=== PATIENT | female | born 1985 | race Caucasian/White ===

== ENCOUNTER 2016-10-27 16:40 | Emergency (ER) | payer OTHER ==
[2016-10-27 16:49] VITALS: BP 147/74; PULSE 74; TEMP 97.8; BMI 19.3
[2016-10-27] MEDS ORDERED: ONDANSETRON 4 MG/2 ML VIAL ONE (17:13)
--- NOTE | 2016-10-27 17:28 | PDOC ---
History of Present Illness - General History Source: Patient Exam Limitations: No Limitations - History of Present Illness Initial Comments: 10/27/16 17:52 31 yr female with nvd and abd pain started at 3am. Pt states her daughter had stomach virus yesterday. pt denies fever or chills c/o pain to her stomach, no urinary or bowel dysfunction no vaginal discharge or abnormal bleeding. LMP 10/10/16 Timing/Duration: reports: constant Abdominal Pain Onset Location: reports: generalized abdomen Pain Radiation: reports: no radiation Activities at Onset: denies: none <Christine Roberto - Last Filed: 10/27/16 19:03> <Megan Gatica - Last Filed: 10/27/16 20:00> - General Chief Complaint: Nausea/Vomiting Stated Complaint: NAUSEA/VOMITING Time Seen by Provider: 10/27/16 17:27 Past History - Past Medical History Anemia: No Asthma: Yes Cancer: No Cardiac Disorders: No CVA: No COPD: No CHF: No Dementia: No Diabetes: No GI Disorders: No Disorders: No HTN: No Hypercholesterolemia: No Kidney Stones: Yes Liver Disease: No Psychiatric Problems: Yes (ANXIETY) Suicide Attempt (Hx): No Seizures: No Thyroid Disease: No - Surgical History Abdominal Surgery: Yes (EXP LAP) Appendectomy: No Cardiac Surgery: No Cholecystectomy: No Lung Surgery: No Neurologic Surgery: No Orthopedic Surgery: No - Family Disease History Comment:: 10/27/16 17:54 none relevant - Reproductive History (#): 9 Para: 2 Cervical CA: No Dysfunctional Uterine Bleeding: No Ectopic : No Endometrial CA: No Endometriosis: Yes Therapeutic (s) & number: No Tubal Ligation: No Spontaneous : 7 - Immunization History Immunization Up to Date: Yes - Psycho/Social/Smoking Cessation Hx Anxiety: No Suicidal Ideation: No Smoking Status: Yes Smoking History: Current every day smoker Have you smoked in the past 12 months: Yes Number of Cigarettes Smoked Daily: 10 Information on smoking cessation initiated: No 'Breaking Loose' booklet given: 06/21/16 Hx Alcohol Use: Yes (SOCIAL) Drug/Substance Use Hx: No Substance Use Type: None Hx Substance Use Treatment: No <Christine Roberto - Last Filed: 10/27/16 19:03> <Megan Gatica - Last Filed: 10/27/16 20:00> - Past Medical History Allergies/Adverse Reactions: Allergies Allergy/AdvReac Type Severity Reaction Status Date / Time ketorolac tromethamine Allergy Intermediate Itching Verified 10/27/16 16:49 [From Toradol] Home Medications: Ambulatory Orders Diphenhydramine HCl [Benadryl -] 25 mg PO Q8H PRN #21 capsule 09/07/16 Abd/GI Specific PMHX - Complaint Specific PMHX Colitis: No Diverticulitis: No Gall Bladder Disease: No GERD: No Hepatitis: No Irritable Bowel Synd (IBS): No Pancreatitis: No GI Ulcer Disease: No <Christine Roberto - Last Filed: 10/27/16 19:03> Review of Systems - Review of Systems Able to Perform ROS?: Yes Comments:: 10/27/16 17:55 Is the patient limited Luxembourgish proficient: No Constitutional: No: Symptoms Reported HEENTM: No: Symptoms Reported Respiratory: No: Symptoms reported Cardiac (ROS): No: Symptoms Reported ABD/GI: Yes: See HPI <Christine Roberto - Last Filed: 10/27/16 19:03> *Physical Exam - Vital Signs Last Vital Signs Temp Pulse Resp BP Pulse Ox 97.8 F 74 20 147/74 97 10/27/16 16:42 10/27/16 16:42 10/27/16 16:42 10/27/16 16:42 10/27/16 16:42 - Physical Exam Comments: 10/27/16 17:55 General Appearance: Yes: Nourished, Appropriately Dressed HEENT: positive: EOMI, DAT, Pharyngeal Erythema, Nasal Congestion. negative: Sinus Tenderness Neck: positive: Supple. negative: Tender Respiratory/Chest: positive: Lungs Clear, Normal Breath Sounds. negative: Chest Tender Cardiovascular: positive: Regular Rhythm, Regular Rate Gastrointestinal/Abdominal: positive: Normal Bowel Sounds, Soft. negative: Tender Musculoskeletal: positive: Normal Inspection Extremity: positive: Normal Capillary Refill, Normal Inspection, Normal Range of Motion Integumentary: positive: Normal Color, Dry, Warm Neurologic: positive: Fully Oriented, Alert, Normal Mood/Affect, Normal Response , Motor Strength 5/5 <Christine Roberto - Last Filed: 10/27/16 19:03> - Vital Signs Last Vital Signs Temp Pulse Resp BP Pulse Ox 97.8 F 74 20 147/74 97 10/27/16 16:42 10/27/16 16:42 10/27/16 16:42 10/27/16 16:42 10/27/16 16:42 <Megan Gatica - Last Filed: 10/27/16 20:00> ED Treatment Course - LABORATORY CBC & Chemistry Diagram: 10/27/16 18:21 10/27/16 18:21 <Christine Roberto - Last Filed: 10/27/16 19:03> - LABORATORY CBC & Chemistry Diagram: 10/27/16 18:21 10/27/16 18:21 - ADDITIONAL ORDERS Additional order review: Laboratory Results 10/27/16 10/27/16 18:30 18:21 Sodium 140 Potassium 4.1 Chloride 109 H Carbon Dioxide 25 Anion Gap 6 L BUN 12 D Creatinine 0.6 Creat Clearance w eGFR > 60 Random Glucose 145 H D Calcium 8.3 L Total Bilirubin 0.8 AST 13 L D ALT 17 Alkaline Phosphatase 49 Total Protein 6.8 Albumin 3.9 Total Amylase 20 L Lipase 49 L Urine Color Lt. yellow Urine Appearance Clear Urine pH 5.5 D Ur Specific [place] 1.025 Urine Protein Negative Urine Glucose (UA) Negative Urine Ketones 1+ H Urine Blood Trace-inta Urine Nitrite Negative Urine Bilirubin Negative Urine Urobilinogen 0.2 e.u/dl Ur Leukocyte Esterase Negative Urine HCG, Qual Negative 10/27/16 18:21 RBC 4.75 MCV 99.6 H MCHC 32.8 RDW 14.1 MPV 9.2 Neutrophils % 93.9 H Lymphocytes % 3.0 L D Monocytes % 2.7 L Eosinophils % 0.1 Basophils % 0.3 - Medications Given in the ED: ED Medications Discontinued Medications Generic Name Dose Route Start Last Admin Trade Name Freq PRN Reason Stop Dose Admin Diphenhydramine HCl 12.5 mg 10/27/16 18:08 10/27/16 18:41 Benadryl Injection - IVPUSH 10/27/16 18:09 12.5 mg ONCE ONE Administration Famotidine/Sodium Chloride 50 mls @ 100 mls/hr 10/27/16 17:36 10/27/16 18:10 Pepcid 20 Mg Premixed Ivpb - IVPB 10/27/16 18:05 100 mls/hr ONCE ONE Administration Sodium Chloride 1,000 mls @ 1,000 mls/hr 10/27/16 18:28 10/27/16 18:41 Normal Saline - IV 10/27/16 19:27 1,000 mls/hr ASDIR STA Administration Metoclopramide HCl 10 mg 10/27/16 18:09 10/27/16 18:41 Reglan Injection - IVPB 10/27/16 18:10 10 mg ONCE ONE Administration Ondansetron HCl 4 mg 10/27/16 18:27 10/27/16 19:14 Zofran Odt - SL 10/27/16 18:28 Not Given ONCE ONE Ondansetron HCl 4 mg 10/27/16 19:15 10/27/16 17:15 Zofran Injection IVPB 10/27/16 19:16 4 mg NOW ONE Administration <Megan Gatica - Last Filed: 10/27/16 20:00> Progress Note - Progress Note Progress Note: Patient left before being d/c'd. Reviewed labs, awaiting urine results. Patient most likely has viral syndrome. Nurse Carina spoke with patient, removed IV and was to discharge patient, but patient left before I could discuss results with her. <Megan Gatica - Last Filed: 10/27/16 20:00> Medical Decision Making - Medical Decision Making 10/27/16 17:56 cc: nvd abd pain started at 3am daughter with stomach flu same symptoms pt denies fever or chills, no back pain , no urinary complaints. will give zofran, IVF pepcid 10/27/16 18:24 labs, urine pending will give benadryl and reglan for vomiting and re-assess 10/27/16 18:39 10/27/16 19:03 singed out to [facility] awaiting disposition <Christine Roberto - Last Filed: 10/27/16 19:03> *DC/Admit/Observation/Transfer <Christine Roberto - Last Filed: 10/27/16 19:03> - Discharge Dispostion Admit: No <Megan Gatica - Last Filed: 10/27/16 20:00> Diagnosis at time of Disposition: Viral infection - Discharge Dispostion Disposition: HOME Condition at time of disposition: Stable - Referrals Referrals: Michelle Cooper [Primary Care Provider] - - Patient Instructions Printed Discharge Instructions: DI for Vomiting -- Adult Additional Instructions: FOLLOW UP WITH YOUR PRIMARY CARE PROVIDER THIS WEEK. CALL TO SCHEDULE APPOINTMENT. RETURN IF SYMPTOMS WORSEN OR ANY CONCERNS FOR FURTHER EVALUATION. Print Language: GREEK
[2016-10-27] MEDS ORDERED: FAMOTIDINE 20 MG/50 ML IVPB 50 ML IVPB ONE ×2 (17:36→18:08)
[2016-10-27] MEDS ORDERED: METOCLOPRAMIDE HCL INJECTION 10 MG/2 ML VIAL IVPB ONE (18:09)
[2016-10-27] MEDS ORDERED: METOCLOPRAMIDE HCL INJECTION 10 MG/2 ML VIAL ONE (18:27)
[2016-10-27] MEDS ORDERED: ONDANSETRON *ODT* 4 MG TABLET SL ONE (18:27)
[2016-10-27] MEDS ORDERED: SODIUM CHLORIDE 1,000 ML IV STA (18:28)
[2016-10-27 18:38] LABS: BASOPHIL 0.3 % (0-2.0); EOSINOPHIL 0.1 % (0-4.5); MCH 32.7 pg (25.7-33.7); MCHC 32.8 g/dl (32.0-36.0); MEAN CELL VOLUME 99.6 fl (80-96); MEAN PLT VOLUME 9.2 fl (7.5-11.1); NEUTROPHILS 93.9 % (42.8-82.8); PLATELET COUNT 174 K/MM3 (134-434); RDW 14.1 % (11.6-15.6)
[2016-10-27 19:12] LABS: ALBUMIN 3.9 g/dl (3.4-5.0); AMYLASE 20 U/L (25-115); ANION GAP 6 (8-16); CALCIUM 8.3 mg/dL (8.5-10.1); CO2 25 mmol/L (21-32); GLUCOSE,RANDOM 145 mg/dL (74-106)
[2016-10-27 19:15] LABS: ALK PHOS 49 U/L (45-117); BILIRUBIN,TOTAL 0.8 mg/dL (0.2-1.0); CREATININE 0.6 mg/dL (0.55-1.02); SGOT/AST 13 U/L (15-37); SGPT/ALT 17 U/L (12-78); TOT PROT 6.8 g/dl (6.4-8.2)
[2016-10-27] MEDS ORDERED: ONDANSETRON 4 MG/2 ML VIAL IVPB ONE (19:15)
[2016-10-27 19:44] LABS: PH,URINE 5.5 (5.0-8.0); URINE APPEARANCE CLEAR; URINE BILIRUBIN NEGATIVE (NEGATIVE); URINE BLOOD TRACE-INTA (NEGATIVE); URINE COLOR LT. YELLOW; URINE GLUCOSE (UA) NEGATIVE (NEGATIVE); URINE KETONE 1+ (NEGATIVE); URINE LEUK ESTERASE NEGATIVE (NEGATIVE); URINE NITRITE NEGATIVE (NEGATIVE); URINE PROTEIN NEGATIVE (NEGATIVE); URINE UROBILINOGEN 0.2 E.U/dl E.U./dl (0.2-1.0)
== END 2016-10-27 19:55 | disposition home or self-care (01) ==
LOC: JER 16:40
PROC: 3E033GC Introduction of Other Therapeutic Substance into Peripheral Vein, Percutaneous Approach (ICD-10-PCS; principal; 2016-10-27)
PROC: 3E0337Z Introduction of Electrolytic and Water Balance Substance into Peripheral Vein, Percutaneous Approach (ICD-10-PCS; 2016-10-27)
DX: B34.9 Viral infection, unspecified (principal); F17.210 Nicotine dependence, cigarettes, uncomplicated; J45.909 Unspecified asthma, uncomplicated; F41.9 Anxiety disorder, unspecified; Z87.442 Personal history of urinary calculi
CPT/HCPCS: 36415; 80053; 81003; 82150; 83690; 84703; 85025; 96361; 96365; 96375; 99283-25

== ENCOUNTER 2016-12-31 15:04 | Emergency (ER) | payer OTHER ==
--- NOTE | 2016-12-31 15:16 | PDOC ---
Rapid Medical Evaluation Time Seen by Provider: 12/31/16 15:09 Medical Evaluation: Allergies Allergy/AdvReac Type Severity Reaction Status Date / Time ketorolac tromethamine Allergy Intermediate Itching Verified 10/27/16 16:49 [From Toradol] 12/31/16 15:09 I have performed a brief in-person evaluation of this patient. Ms. Patel is a 31 yo F with a history of endometriosis who presents to the ER with a complaint of nausea and vomiting. Pt states she is "here all the time", not sure why this repeatedly happens to her (suspects it is related to stress). "When I come here, they give me nausea medicine and send me home" Symptoms began at 3am Nausea and vomiting associated with abdominal pain which she currently rates Has not been seen by GI Pertinent physical exam findings: Afebrile Pt vomiting in garage in triage Difficult to examine: no abd distention, no obvious tenderness I have ordered the following: basic labs, , IVF The patient will proceed to the ED for further evaluation. 12/31/16 15:21
[2016-12-31 15:21] VITALS: BP 114/92; PULSE 74; TEMP 98.2; BMI 19.3
[2016-12-31] MEDS ORDERED: SODIUM CHLORIDE 1,000 ML IV STA ×2 (15:21→17:55)
[2016-12-31 15:38] LABS: BASOPHIL 0.3 % (0-2.0); MCH 33.3 pg (25.7-33.7); MCHC 34.1 g/dl (32.0-36.0); MEAN CELL VOLUME 97.7 fl (80-96); MEAN PLT VOLUME 9.1 fl (7.5-11.1); NEUTROPHILS 85.5 % (42.8-82.8); PLATELET COUNT 196 K/MM3 (134-434); RDW 13.5 % (11.6-15.6); WHITE BLOOD COUNT 12.2 K/mm3 (4.0-10.0)
[2016-12-31] MEDS ORDERED: ONDANSETRON *ODT* 4 MG TABLET SL ONE (15:52)
[2016-12-31 15:59] LABS: ALBUMIN 4.7 g/dl (3.4-5.0); ALK PHOS 54 U/L (45-117); AMYLASE 29 U/L (25-115); ANION GAP 9 (8-16); BILIRUBIN,TOTAL 0.7 mg/dL (0.2-1.0); CALCIUM 9.2 mg/dL (8.5-10.1); CO2 26 mmol/L (21-32); CREATININE 0.6 mg/dL (0.55-1.02); GLUCOSE,RANDOM 176 mg/dL (74-106); SGOT/AST 16 U/L (15-37); SGPT/ALT 21 U/L (12-78); TOT PROT 7.7 g/dl (6.4-8.2)
[2016-12-31] MEDS ORDERED: ONDANSETRON 4 MG/2 ML VIAL ONE ×2 (16:16→17:31)
[2016-12-31] MEDS ORDERED: LORazepam 1 MG TABLET PO ONE (16:30)
--- NOTE | 2016-12-31 16:31 | PDOC ---
History of Present Illness - General History Source: Patient Exam Limitations: No Limitations - History of Present Illness Initial Comments: 12/31/16 16:31 The patient is a 31-year-old female with a significant past medical history of endometriosis and anxiety, and presents to the emergency department with abdominal pain, nausea, and vomiting. She states the abdominal pain is located in the midgastric region and right lower quadrant. She reports this abdominal pain has been ongoing for many years. The patient reports that she has feels like her stomach contents are coming up but she is having difficulty getting relieved of it. Upon interview, she put her finger down her throat to aid in vomiting. She took ondansetron for the nausea with minimal relief. The patient denies chest pain, shortness of breath, headache and dizziness. The patient denies fever, chills, diarrhea and constipation. The patient denies dysuria, frequency, urgency and hematuria. LMP- ended yesterday Allergies: ketorolac tromethamine Social History: current everyday smoker PCP: Dr. Michelle Ellis <Keely Mosley - Last Filed: 12/31/16 16:31> <Yair Lilly - Last Filed: 12/31/16 18:01> - General Chief Complaint: Nausea/Vomiting Stated Complaint: VOMITING, NAUSEA Time Seen by Provider: 12/31/16 15:09 Past History <Keely Mosley - Last Filed: 12/31/16 16:31> - Past Medical History Anemia: No Asthma: Yes Cancer: No Cardiac Disorders: No CVA: No COPD: No CHF: No Dementia: No Diabetes: No GI Disorders: No Disorders: No HTN: No Hypercholesterolemia: No Kidney Stones: Yes Liver Disease: No Psychiatric Problems: Yes (ANXIETY) Suicide Attempt (Hx): No Seizures: No Thyroid Disease: No - Surgical History Abdominal Surgery: Yes (EXP LAP) Appendectomy: No Cardiac Surgery: No Cholecystectomy: No Lung Surgery: No Neurologic Surgery: No Orthopedic Surgery: No - Reproductive History (#): 9 Para: 2 Cervical CA: No Dysfunctional Uterine Bleeding: No Ectopic : No Endometrial CA: No Endometriosis: Yes Therapeutic (s) & number: No Tubal Ligation: No Spontaneous : 7 - Immunization History Immunization Up to Date: Yes - Psycho/Social/Smoking Cessation Hx Anxiety: Yes Suicidal Ideation: No Smoking Status: Yes Smoking History: Current every day smoker Have you smoked in the past 12 months: Yes Number of Cigarettes Smoked Daily: 10 Information on smoking cessation initiated: No 'Breaking Loose' booklet given: 06/21/16 Hx Alcohol Use: No Drug/Substance Use Hx: No Substance Use Type: None Hx Substance Use Treatment: No <Yair Lilly - Last Filed: 12/31/16 18:01> - Past Medical History Allergies/Adverse Reactions: Allergies Allergy/AdvReac Type Severity Reaction Status Date / Time ketorolac tromethamine Allergy Intermediate Itching Verified 12/31/16 15:21 [From Toradol] Home Medications: Ambulatory Orders Metoclopramide HCl [Reglan] 10 mg GT TID #30 tablet 12/31/16 Ondansetron [Ondansetron Odt] 8 mg PO TID #30 tab.rapdis 12/31/16 Promethazine HCl [Phenergan -] 25 mg PO TID #30 tablet 12/31/16 Review of Systems - Review of Systems Able to Perform ROS?: Yes Comments:: 12/31/16 16:31 GENERAL/CONSTITUTIONAL: No fever or chills. No weakness. HEAD, EYES, EARS, NOSE AND THROAT: No change in vision. No ear pain or discharge. No sore throat. CARDIOVASCULAR: No chest pain or shortness of breath. RESPIRATORY: No cough, wheezing, or hemoptysis. GASTROINTESTINAL: (+) Abdominal pain, (+) nausea, (+) vomiting. No diarrhea or constipation. GENITOURINARY: No dysuria, frequency, or change in urination. MUSCULOSKELETAL: No joint or muscle swelling or pain. No neck or back pain. SKIN: No rash NEUROLOGIC: No headache, vertigo, loss of consciousness, or change in strength/ sensation. ENDOCRINE: No increased thirst. No abnormal weight change. HEMATOLOGIC/LYMPHATIC: No anemia, easy bleeding, or history of blood clots. ALLERGIC/IMMUNOLOGIC: No hives or skin allergy. <Keely Mosley - Last Filed: 12/31/16 16:31> *Physical Exam - Vital Signs Last Vital Signs Temp Pulse Resp BP Pulse Ox 98.2 F 74 19 114/92 97 12/31/16 15:17 12/31/16 15:17 12/31/16 15:17 12/31/16 15:17 12/31/16 15:17 - Physical Exam Comments: 12/31/16 16:32 GENERAL: Awake, alert, and fully oriented, in no acute distress HEAD: No signs of trauma EYES: PERRLA, EOMI, sclera anicteric, conjunctiva clear ENT: Auricles normal inspection, hearing grossly normal, nares patent, oropharynx clear without exudates. Moist mucosa NECK: Normal ROM, supple, no lymphadenopathy, JVD, or masses LUNGS: Breath sounds equal, clear to auscultation bilaterally. No wheezes, and no crackles HEART: Regular rate and rhythm, normal S1 and S2, no murmurs, rubs or gallops ABDOMEN: Soft, nontender, normoactive bowel sounds. No guarding, no rebound. No masses EXTREMITIES: Normal range of motion, no edema. No clubbing or cyanosis. No cords, erythema, or tenderness NEUROLOGICAL: Cranial nerves II through XII grossly intact. Normal speech, normal gait SKIN: Warm, Dry, normal turgor, no rashes or lesions noted. <Keely Mosley - Last Filed: 12/31/16 16:31> - Vital Signs Last Vital Signs Temp Pulse Resp BP Pulse Ox 98.2 F 74 19 114/92 97 12/31/16 15:17 12/31/16 15:17 12/31/16 15:17 12/31/16 15:17 12/31/16 15:17 <Yair Lilly - Last Filed: 12/31/16 18:01> ED Treatment Course - LABORATORY CBC & Chemistry Diagram: 12/31/16 15:30 12/31/16 15:30 - ADDITIONAL ORDERS Additional order review: Laboratory Results 12/31/16 12/31/16 15:30 15:30 Sodium 139 Potassium 3.6 Chloride 104 Carbon Dioxide 26 Anion Gap 9 BUN 10 Creatinine 0.6 Creat Clearance w eGFR > 60 Random Glucose 176 H D Calcium 9.2 Total Bilirubin 0.7 AST 16 D ALT 21 D Alkaline Phosphatase 54 Total Protein 7.7 Albumin 4.7 D Total Amylase 29 D Lipase 62 L Serum , Qual Negative 12/31/16 15:30 RBC 4.85 MCV 97.7 H MCHC 34.1 RDW 13.5 MPV 9.1 Neutrophils % 85.5 H Lymphocytes % 11.5 D Monocytes % 2.7 L Eosinophils % 0.0 D Basophils % 0.3 <Keely Mosley - Last Filed: 12/31/16 16:31> - LABORATORY CBC & Chemistry Diagram: 12/31/16 15:30 12/31/16 15:30 - ADDITIONAL ORDERS Additional order review: Laboratory Results 12/31/16 12/31/16 15:30 15:30 Sodium 139 Potassium 3.6 Chloride 104 Carbon Dioxide 26 Anion Gap 9 BUN 10 Creatinine 0.6 Creat Clearance w eGFR > 60 Random Glucose 176 H D Calcium 9.2 Total Bilirubin 0.7 AST 16 D ALT 21 D Alkaline Phosphatase 54 Total Protein 7.7 Albumin 4.7 D Total Amylase 29 D Lipase 62 L Serum , Qual Negative 12/31/16 15:30 RBC 4.85 MCV 97.7 H MCHC 34.1 RDW 13.5 MPV 9.1 Neutrophils % 85.5 H Lymphocytes % 11.5 D Monocytes % 2.7 L Eosinophils % 0.0 D Basophils % 0.3 <Yair Lilly - Last Filed: 12/31/16 18:01> *DC/Admit/Observation/Transfer - Attestations Scribe Attestion: 12/31/16 16:32 Documentation prepared by Keely Mosley, acting as curator medical museum for Yair Lilly MD. <Keely Mosley - Last Filed: 12/31/16 16:31> - Discharge Dispostion Admit: No - Attestations Physician Attestion: 12/31/16 16:31 I, Dr. Yair Lilly, attest that this document has been prepared under my direction and personally reviewed by me in its entirety. I further attest, that it accurately reflects all work, treatment, procedures and medical decision -making performed by me. <Yair Lilly - Last Filed: 12/31/16 18:01> Diagnosis at time of Disposition: Gastroenteritis, Nausea Nausea & vomiting Qualifiers: Vomiting type: unspecified Vomiting Intractability: unspecified Qualified Code( s): R11.2 - Nausea with vomiting, unspecified - Discharge Dispostion Condition at time of disposition: Good - Prescriptions Prescriptions: Promethazine HCl [Phenergan -] 25 mg PO TID #30 tablet Metoclopramide HCl [Reglan] 10 mg GT TID #30 tablet Ondansetron [Ondansetron Odt] 8 mg PO TID #30 tab.rapdis - Referrals Referrals: Michelle Cooper [Primary Care Provider] - - Patient Instructions Additional Instructions: Follow up with your doctor next week. Return to us if worse or new symptoms occur. [place]- Dr. Yair Lilly
[2016-12-31 16:54] LABS: URINE APPEARANCE CLEAR; URINE BILIRUBIN NEGATIVE (NEGATIVE); URINE BLOOD NEGATIVE (NEGATIVE); URINE COLOR YELLOW; URINE GLUCOSE (UA) 3+ (NEGATIVE); URINE KETONE 2+ (NEGATIVE); URINE LEUK ESTERASE NEGATIVE (NEGATIVE); URINE NITRITE NEGATIVE (NEGATIVE); URINE UROBILINOGEN NEGATIVE E.U./dl (0.2-1.0)
[2016-12-31] MEDS ORDERED: ONDANSETRON 4 MG/2 ML VIAL IVPB ONE (16:54)
[2016-12-31 16:57] LABS: URINE PROTEIN 1+ (NEGATIVE)
[2016-12-31 17:00] LABS: URINE MUCUS RARE; URINE RBC 11 /hpf (0-3); URINE WBC 2 /hpf (3-5)
[2016-12-31] MEDS ORDERED: PROMETHAZINE HCL 25 MG/1 ML VIAL IM ONE (17:14)
[2016-12-31] MEDS ORDERED: PANTOPRAZOLE SODIUM 40 MG in SODIUM CHLORIDE 100 ML IVPB ONE (17:14)
[2016-12-31] MEDS ORDERED: PANTOPRAZOLE SODIUM 100 ML IVPB ONE (17:30)
[2016-12-31] MEDS ORDERED: PROCHLORPERAZINE MALEATE 5 MG TABLET ONE (17:30)
[2016-12-31] MEDS ORDERED: LORazepam 0.5 MG TABLET ONE (17:30)
[2016-12-31] MEDS ORDERED: PROCHLORPERAZINE MALEATE 5 MG TABLET PO ONE (18:23)
== END 2016-12-31 18:53 | disposition home or self-care (01) ==
LOC: SUPCPDRO 15:04 → JER 15:04
PROC: 3E0337Z Introduction of Electrolytic and Water Balance Substance into Peripheral Vein, Percutaneous Approach (ICD-10-PCS; principal; 2016-12-31)
PROC: 3E033GC Introduction of Other Therapeutic Substance into Peripheral Vein, Percutaneous Approach (ICD-10-PCS; 2016-12-31)
PROC: 3E033GC Introduction of Other Therapeutic Substance into Peripheral Vein, Percutaneous Approach (ICD-10-PCS; 2016-12-31)
DX: K52.9 Noninfective gastroenteritis and colitis, unspecified (principal); F41.9 Anxiety disorder, unspecified; F17.210 Nicotine dependence, cigarettes, uncomplicated
CPT/HCPCS: 36415; 80053; 81003; 81015; 82150; 83690; 84703; 85025; 96361; 96365; 96375; 99282-25

== ENCOUNTER 2017-08-03 12:24 | Emergency (ER) | payer OTHER ==
[2017-08-03 12:34] VITALS: BP 113/72; PULSE 83; TEMP 98.3; BMI 20.9
[2017-08-03] MEDS ORDERED: predniSONE 20 MG TABLET (UD) PO ONE (13:06)
[2017-08-03] MEDS ORDERED: predniSONE 20 MG TABLET (UD) ONE (13:11)
[2017-08-03] MEDS: ALBUTEROL SO4 2.5/IPRATROPIUM 0.5 INH SOL 3 ML VIAL.NEB. NEB SCH ×4 (13:14→14:08)
--- NOTE | 2017-08-03 13:22 | PDOC ---
History of Present Illness - General Chief Complaint: Cold Symptoms Stated Complaint: COUGHING Time Seen by Provider: 08/03/17 12:56 History Source: Patient - History of Present Illness Timing/Duration: reports: other Associated Symptoms: reports: cough, wheezing. denies: fever/chills Past History - Past Medical History Allergies/Adverse Reactions: Allergies Allergy/AdvReac Type Severity Reaction Status Date / Time ketorolac tromethamine Allergy Intermediate Itching Verified 08/03/17 12:34 [From Toradol] Home Medications: Ambulatory Orders Albuterol Sulfate [Proventil HFA Inhaler -] 1 - 2 inh PO QID #1 inhaler Prednisone [Deltasone -] 20 mg PO DAILY #8 tablet 08/03/17 Anemia: No Asthma: Yes Cancer: No Cardiac Disorders: No CVA: No COPD: No CHF: No Dementia: No Diabetes: No GI Disorders: No Disorders: No HTN: No Hypercholesterolemia: No Kidney Stones: Yes Liver Disease: No Psychiatric Problems: Yes (ANXIETY) Seizures: No Thyroid Disease: No - Surgical History Abdominal Surgery: Yes (EXP LAP) Appendectomy: No Cardiac Surgery: No Cholecystectomy: No Lung Surgery: No Neurologic Surgery: No Orthopedic Surgery: No - Reproductive History (#): 9 Para: 2 Cervical CA: No Dysfunctional Uterine Bleeding: No Ectopic : No Endometrial CA: No Endometriosis: Yes Therapeutic (s) & number: No Tubal Ligation: No Spontaneous : 7 - Immunization History Immunization Up to Date: Yes - Suicide/Smoking/Psychosocial Hx Smoking Status: Yes Smoking History: Current every day smoker Have you smoked in the past 12 months: Yes Number of Cigarettes Smoked Daily: 10 Information on smoking cessation initiated: No 'Breaking Loose' booklet given: 06/21/16 Hx Alcohol Use: Yes (SOCIAL) Drug/Substance Use Hx: No Substance Use Type: None Hx Substance Use Treatment: No Review of Systems - Review of Systems Constitutional: No: Chills, Fever HEENTM: No: Ear Pain, Throat Pain Respiratory: Yes: Cough, Wheezing *Physical Exam - Vital Signs Last Vital Signs Temp Pulse Resp BP Pulse Ox 98.3 F 83 20 113/72 99 08/03/17 12:30 08/03/17 12:30 08/03/17 12:30 08/03/17 12:30 08/03/17 12:30 - Physical Exam General Appearance: Yes: Appropriately Dressed. No: Apparent Distress HEENT: positive: Normal ENT Inspection, Normal Voice, Pharynx Normal. negative : Scleral Icterus (R), Scleral Icterus (L) Neck: positive: Supple. negative: Lymphadenopathy (R), Lymphadenopathy (L) Respiratory/Chest: negative: Respiratory Distress, Wheezing Cardiovascular: positive: Regular Rate, S1, S2 Integumentary: positive: Dry, Warm Neurologic: positive: Fully Oriented, Alert, Normal Mood/Affect ED Treatment Course - RADIOLOGY Radiology Studies Ordered: Category Date Time Status CHEST PA & LAT [RAD] Stat Radiology 08/03/17 13:05 Ordered - Medications Given in the ED: ED Medications Discontinued Medications Generic Name Dose Route Start Last Admin Trade Name Freq PRN Reason Stop Dose Admin Prednisone 60 mg 08/03/17 13:06 08/03/17 13:14 Deltasone - PO 08/03/17 13:07 60 mg ONCE ONE Administration Medical Decision Making - Medical Decision Making 08/03/17 13:20 32-year-old female, history of mild asthma, smoker, pneumonia, here with non- productive cough with intermittent wheezing for 3 days. Patient unsure if she is short of breath. No hemoptysis, fever or chills. States she does not have an asthma pump at home See exam Mild asthma flare Stable w/ clear lungs -nebs -pred -CXR given hx 08/03/17 14:08 CXR without infiltrate. Mild hyperaeration seen. Pt improved w/ nebs and lungs remains clear. Will dc w/ refill of alb pump and pred burst. Smoking cessation strongly encouraged. To f/u with PMD 08/03/17 14:11 *DC/Admit/Observation/Transfer Diagnosis at time of Disposition: Cough - Discharge Dispostion Disposition: HOME Condition at time of disposition: Improved - Prescriptions Prescriptions: Prednisone [Deltasone -] 20 mg PO DAILY #8 tablet Albuterol Sulfate [Proventil HFA Inhaler -] 1 - 2 inh PO QID #1 inhaler - Patient Instructions Printed Discharge Instructions: Asthma -- Adult, Serious Ways to Stop Smoking Additional Instructions: Take medications as prescribed and follow-up with your PMD
== END 2017-08-03 14:23 | disposition home or self-care (01) ==
LOC: JERFT 12:24
PROC: 3E0F7GC Introduction of Other Therapeutic Substance into Respiratory Tract, Via Natural or Artificial Opening (ICD-10-PCS; principal; 2017-08-03)
DX: J45.909 Unspecified asthma, uncomplicated (principal); F17.210 Nicotine dependence, cigarettes, uncomplicated
CPT/HCPCS: 71020-TC; 84703; 99281-25

== ENCOUNTER 2017-08-09 13:52 | Emergency (ER) | payer OTHER ==
--- NOTE | 2017-08-09 14:00 | PDOC ---
History of Present Illness - General Chief Complaint: Nausea/Vomiting Stated Complaint: NAUSEA,VOMITING,DIARRHEA Time Seen by Provider: 08/09/17 13:59 - History of Present Illness Initial Comments: The patient is a 31-year-old female with pmh of endometriosis (s/p laparoscopy a few years prior) and anxiety presenting to the emergency department with abdominal pain, nausea, vomiting, and crampy abdominal pain. She states the abdominal pain is located in the epigastric region and bilateral lower quadrants. She reports this abdominal pain has been ongoing for many years but acutely worsened this morning "probably because I am under a lot of stress lately". She woke up this morning with the non-bilious, non bloody vomiting and watery diarrhea. Denies sick contacts, recent ravel, or peculiar food ingestion. Denies fevers, chills, chest pain, palpitations, sob, headache, or dizziness. Her LMP was the day before presentation. She is a pack a day smoker with 17 pack year history and occasional marijuan use. She doesn't drink alcohol frequently. PCP: Dr. Michelle Ellis 08/09/17 14:14 Past History - Past Medical History Allergies/Adverse Reactions: Allergies Allergy/AdvReac Type Severity Reaction Status Date / Time ketorolac tromethamine Allergy Intermediate Itching Verified 08/09/17 13:54 [From Toradol] Home Medications: Ambulatory Orders Acetaminophen [Tylenol] 325 mg PO TID PRN #120 tablet 08/09/17 Mag Hydrox/Al Hydrox/Simeth [Mylanta Suspension -] 30 ml PO Q6H PRN #1 bottle Metoclopramide HCl [Reglan -] 10 mg PO QID PRN #120 tablet 08/09/17 Anemia: No Asthma: Yes Cancer: No Cardiac Disorders: No CVA: No COPD: No CHF: No Dementia: No Diabetes: No GI Disorders: No Disorders: No HTN: No Hypercholesterolemia: No Kidney Stones: Yes Liver Disease: No Psychiatric Problems: Yes (ANXIETY) Seizures: No Thyroid Disease: No - Surgical History Abdominal Surgery: Yes (EXP LAP) Appendectomy: No Cardiac Surgery: No Cholecystectomy: No Lung Surgery: No Neurologic Surgery: No Orthopedic Surgery: No - Reproductive History (#): 9 Para: 2 Cervical CA: No Dysfunctional Uterine Bleeding: No Ectopic : No Endometrial CA: No Endometriosis: Yes Therapeutic (s) & number: No Tubal Ligation: No Spontaneous : 7 - Immunization History Immunization Up to Date: Yes - Suicide/Smoking/Psychosocial Hx Smoking Status: Yes Smoking History: Current every day smoker Have you smoked in the past 12 months: Yes Number of Cigarettes Smoked Daily: 10 If you are a former smoker, when did you quit?: T 'Breaking Loose' booklet given: 06/21/16 Hx Alcohol Use: Yes (OCCASIONAL) Drug/Substance Use Hx: No Substance Use Type: None Hx Substance Use Treatment: No Review of Systems - Review of Systems Constitutional: No: Chills, Fever HEENTM: No: Blurred Vision Respiratory: No: Cough, Shortness of Breath Cardiac (ROS): No: Chest Pain, Edema ABD/GI: Yes: Nausea, Poor Appetite, Vomiting : No: Burning, Dysuria *Physical Exam - Physical Exam General Appearance: Yes: Nourished, Appropriately Dressed, Apparent Distress, Mild Distress (Patient actively moving around in pain.) HEENT: positive: EOMI, DAT, Normal Voice Neck: positive: Trachea midline, Normal Thyroid, Supple. negative: Tender, Rigid Respiratory/Chest: positive: Lungs Clear, Normal Breath Sounds. negative: Chest Tender Cardiovascular: positive: Regular Rhythm, Regular Rate. negative: S1, S2, Murmur ED Treatment Course - LABORATORY CBC & Chemistry Diagram: 08/09/17 14:30 08/09/17 14:30 Medical Decision Making - Medical Decision Making 32 year old female with frequent visits to the ED for abdominal pain, nausea, and vomiting presenting for the same issue. Her symptoms are still present after 1 1L NS, Reglan 10, Zofran 8, and 1 of Dilaudid. Her abdominal exam remains benign and she still complains of nonspecific abdominal pain but nausea and vomiting have resolved. The etiology of her abdominal pain and GI symptoms is unclear. It could be a viral gastroenteritis given her recent upper respiratory infection. It could also be a per-menstrual dysfunction given her presentation the last two visit sot the ED directly after cessation of her menstrual cycle. [place]abanoid related GI pathology unlikely given her lack of consistent use. The is most likely related to her life stressors (in between homes and multiple young children to care for after a recent separation from her spouse). Her labs howerver are relatively normal with evidence of dehydration/ hemo concentration. Will give one more Dilaudid 1 MG dose and send her home with PCP follow up for further workup. 08/09/17 16:56 *DC/Admit/Observation/Transfer Diagnosis at time of Disposition: Gastroenteritis Abdominal pain Qualifiers: Abdominal location: epigastric Qualified Code(s): R10.13 - Epigastric pain; R10.13 - Epigastric pain Nausea & vomiting Qualifiers: Vomiting type: unspecified Vomiting Intractability: intractable Qualified Code( s): R11.2 - Nausea with vomiting, unspecified; R11.2 - Nausea with vomiting, unspecified - Discharge Dispostion Disposition: HOME Condition at time of disposition: Stable Admit: No - Prescriptions Prescriptions: Mag Hydrox/Al Hydrox/Simeth [Mylanta Suspension -] 30 ml PO Q6H PRN #1 bottle PRN Reason: Stomach pain Metoclopramide HCl [Reglan -] 10 mg PO QID PRN #120 tablet PRN Reason: Nausea And/Or Vomiting Acetaminophen [Tylenol] 325 mg PO TID PRN #120 tablet PRN Reason: Pain Level 1-5 - Referrals Referrals: Roshan Trinidad MD [Staff Physician] - - Patient Instructions Printed Discharge Instructions: DI for Nausea -- Adult, DI for Vomiting -- Adult Additional Instructions: We looked at your blood labs and didn't see any abnormalities besides dehydration. We beleive that this could be related to your menstrual period or a viral infection that should resolve on its own. It could also be due to an ulcer in your stomach. Please take the reglan at home as needed for the nausea and vomiting. You can try maalox for the stomach pain and tylenol. Please avoid NSAIDs such as ibuprofen, aleve, or motrin. Please make an appointment with the GI doctor to get another scope of your stomach. Please return to the ED if you have any further problems that don't resolve with your medication. - Post Discharge Activity Forms/Work/School Notes: Back to Work
[2017-08-09] MEDS ORDERED: ONDANSETRON 4 MG/2 ML VIAL IVPUSH ONE (14:07)
[2017-08-09] MEDS ORDERED: ACETAMINOPHEN 1000 MG/100 ML VIAL (NON FORMULARY) IVPB ONE (14:08)
[2017-08-09] MEDS ORDERED: MAG HYDROX/AL HYDROX/SIMETH 30 ML UNIT-DOSE CUP PO ONE (14:08)
[2017-08-09] MEDS ORDERED: FAMOTIDINE 20 MG/50 ML IVPB 50 ML IVPB ONE ×2 (14:09→14:44)
[2017-08-09 14:20] VITALS: TEMP 97.9; BMI 21.0
[2017-08-09 14:40] LABS: BASOPHIL 4.4 % (0-2.0); EOSINOPHIL 0.1 % (0-4.5); MCHC 34.3 g/dl (32.0-36.0); MEAN PLT VOLUME 9.5 fl (7.5-11.1); NEUTROPHILS 74.8 % (42.8-82.8); PLATELET COUNT 240 K/MM3 (134-434); RDW 12.8 % (11.6-15.6); WHITE BLOOD COUNT 15.6 K/mm3 (4.0-10.8)
[2017-08-09] MEDS ORDERED: ACETAMINOPHEN INJECTION 100 ML IVPB ONE (14:44)
[2017-08-09] MEDS ORDERED: MAG HYDROX/AL HYDROX/SIMETH 30 ML UNIT-DOSE CUP ONE (14:44)
[2017-08-09] MEDS ORDERED: ONDANSETRON 4 MG/2 ML VIAL ONE (14:45)
[2017-08-09 15:02] LABS: PH,URINE 6.5 (4.5-8); URINE APPEARANCE Cloudy; URINE BILIRUBIN 1+ (NEGATIVE); URINE GLUCOSE (UA) Negative (NEGATIVE); URINE KETONE 1+ (NEGATIVE); URINE LEUK ESTERASE Negative (NEGATIVE); URINE NITRITE Negative (NEGATIVE); URINE UROBILINOGEN 0.2 (0.2-1.0)
[2017-08-09 15:07] LABS: ALBUMIN 5.2 g/dl (3.5-5.0); ALK PHOS 50 U/L (32-92); ANION GAP 9 (8-16); BILIRUBIN,TOTAL 0.8 mg/dl (0.2-1.0); CALCIUM 10.1 mg/dl (8.4-10.2); CO2 26 mmol/L (22-28); CREATININE 0.6 mg/dl (0.6-1.3); GLUCOSE,RANDOM 155 mg/dl (74-106); SGOT/AST 22 U/L (10-42); SGPT/ALT 18 U/L (10-40); TOT PROT 8.3 g/dl (6.4-8.3)
[2017-08-09 15:09] LABS: URINE BLOOD 2+ (NEGATIVE); URINE COLOR YELLOW; URINE PROTEIN 1+ (NEGATIVE)
[2017-08-09] MEDS ORDERED: HYDROmorphone HCL CARPU-JECT 1 MG/1 ML DISP.SYRIN IVPUSH ONE ×2 (15:13→16:55)
[2017-08-09] MEDS ORDERED: HYDROmorphone HCL CARPU-JECT 1 MG/1 ML DISP.SYRIN ONE ×2 (15:16→16:56)
[2017-08-09] MEDS ORDERED: SODIUM CHLORIDE 0.9% 1000 ML INFUS.BAG IV STA (16:06)
[2017-08-09] MEDS ORDERED: METOCLOPRAMIDE HCL INJECTION 10 MG/2 ML VIAL IVPUSH ONE ×2 (16:08→16:12)
--- NOTE | 2017-08-09 16:12 | PDOC ---
Attending Attestation - Resident Resident Name: Sherine Chen - ED Attending Attestation I have performed the following: I have examined & evaluated the patient, The case was reviewed & discussed with the resident, I agree w/resident's findings & plan, Exceptions are as noted - HPI HPI: 08/09/17 16:10 32-year-old female with history of recurrent GI issues and multiple ED visits in the past presents now with nausea/vomiting/diarrhea and epigastric cramping. No travel, no recent surgeries, last endoscopy was 2011, has been treated for gastritis/PUD in the past. Vomiting and diarrhea are nonbloody. - Physicial Exam PE: 08/09/17 16:10 Vital signs normal. Arrived nauseous and retching, at time of this exam is markedly improved, tolerating by mouth, ambulating comfortably after medications given Some epigastric discomfort to palpation but no guarding or rebound, soft and nondistended - Medical Decision Making 08/09/17 16:11 32-year-old female with acute on chronic abdominal complaints with vomiting and diarrhea. Question gastroparesis versus gastritis/PUD, has had imaging in the past and endoscopy which noted only gastritis and PUD. Has had workups for endometriosis, otherwise off PPI at this time. Only occasional alcohol or marijuana intake. Labs are within normal limits, including chemistries Markedly improved after fluids, Tylenol, IV opiates, antiemetics Agrees with discharge plan on PPI, GI follow-up, and antiemetics Understands return criteria
[2017-08-09 16:44] VITALS: BP 131/81; PULSE 81
[2017-08-09 17:17] LABS: URINE BACTERIA MODERATE /hpf (NEGATIVE); URINE WBC 15-25 (3-5)
== END 2017-08-09 17:47 | disposition home or self-care (01) ==
LOC: FER 13:52
PROC: 3E033NZ Introduction of Analgesics, Hypnotics, Sedatives into Peripheral Vein, Percutaneous Approach (ICD-10-PCS; principal; 2017-08-09)
PROC: 3E033GC Introduction of Other Therapeutic Substance into Peripheral Vein, Percutaneous Approach (ICD-10-PCS; 2017-08-09)
PROC: 3E0337Z Introduction of Electrolytic and Water Balance Substance into Peripheral Vein, Percutaneous Approach (ICD-10-PCS; 2017-08-09)
DX: K52.9 Noninfective gastroenteritis and colitis, unspecified (principal); R10.13 Epigastric pain; R11.2 Nausea with vomiting, unspecified
CPT/HCPCS: 36415; 80053; 81003; 81015; 83690; 84703; 85025; 96361; 96365; 96375; 96376; 99283-25

== ENCOUNTER 2017-08-29 16:22 | Emergency (ER) | payer OTHER ==
[2017-08-29 16:27] VITALS: BP 121/82; PULSE 90; TEMP 98.2; BMI 21.7
[2017-08-29] MEDS ORDERED: ACETAMINOPHEN 500 MG TABLET (FP) PO ONE (16:28)
--- NOTE | 2017-08-29 16:28 | PDOC ---
Rapid Medical Evaluation Time Seen by Provider: 08/29/17 16:23 Medical Evaluation: Allergies Allergy/AdvReac Type Severity Reaction Status Date / Time ketorolac tromethamine Allergy Intermediate Itching Verified 08/09/17 13:54 [From Toradol] 08/29/17 16:24 I have performed a brief in-person evaluation of this patient. The Patient presents with a chief complaint of pain with urination x yesterday Patient reports symptoms started yesterday but worse today. Reports presently with pain in lower abdomen, lower mid back and blood in urine. Denies fever or chills Pertinent physical exam findings are: NAD unlabored breathing negative cva tenderness negative mid suprapubis tenderness I have ordered the following: urinalysis, urine , analgesia The patient will proceed to the ED for further evaluation.
--- NOTE | 2017-08-29 16:56 | PDOC ---
History of Present Illness - General Chief Complaint: Urinary Problem Stated Complaint: URINARY PROBLEM Time Seen by Provider: 08/29/17 16:23 History Source: Patient Exam Limitations: No Limitations - History of Present Illness Initial Comments: 08/29/17 17:17 Patient is a 32-year-old female past medical history of kidney stones, who presents to the emergency department today complaining of burning on urination. Patient states that her symptoms started this morning. She also notes increased frequency over the past 2 days. Denies fevers, chills, nausea and vomiting. Denies back pain. She states that she is currently on her menstrual cycle. Past History - Travel Traveled outside of the country in the last 30 days: No Close contact w/someone who was outside of country & ill: No - Past Medical History Allergies/Adverse Reactions: Allergies Allergy/AdvReac Type Severity Reaction Status Date / Time ketorolac tromethamine Allergy Intermediate Itching Verified 08/29/17 16:24 [From Toradol] Home Medications: Ambulatory Orders Nitrofurantoin Monohyd/M-Cryst [Macrobid -] 100 mg PO BID #14 capsule 08/29/17 Phenazopyridine HCl [Pyridium -] 100 mg PO TID #21 tablet 08/29/17 Anemia: No Asthma: Yes Cancer: No Cardiac Disorders: No CVA: No COPD: No CHF: No DVT: No Dementia: No Diabetes: No GI Disorders: No Disorders: No HTN: No Hypercholesterolemia: No Kidney Stones: Yes Liver Disease: No Psychiatric Problems: Yes (ANXIETY) Seizures: No Thyroid Disease: No - Surgical History Abdominal Surgery: Yes (EXP LAP) Appendectomy: No Cardiac Surgery: No Cholecystectomy: No Lung Surgery: No Neurologic Surgery: No Orthopedic Surgery: No - Reproductive History (#): 9 Para: 2 Cervical CA: No Dysfunctional Uterine Bleeding: No Ectopic : No Endometrial CA: No Endometriosis: Yes Therapeutic (s) & number: No Tubal Ligation: No Spontaneous : 7 - Immunization History Immunization Up to Date: Yes - Suicide/Smoking/Psychosocial Hx Smoking Status: Yes Smoking History: Current every day smoker Have you smoked in the past 12 months: Yes Number of Cigarettes Smoked Daily: 10 If you are a former smoker, when did you quit?: T Information on smoking cessation initiated: Yes 'Breaking Loose' booklet given: 06/21/16 Hx Alcohol Use: Yes (OCCASIONAL) Drug/Substance Use Hx: No Substance Use Type: None Hx Substance Use Treatment: No Review of Systems - Review of Systems Able to Perform ROS?: Yes Comments:: 08/29/17 17:18 CONSTITUTIONAL: Absent: fever, chills, diaphoresis, generalized weakness, malaise, loss of appetite HEENT: Absent: rhinorrhea, nasal congestion, throat pain, throat swelling, difficulty swallowing, mouth swelling, ear pain, eye pain, visual Changes CARDIOVASCULAR: Absent: chest pain, loss of consciousness, palpitations, irregular heart rate, peripheral edema RESPIRATORY: Absent: cough, shortness of breath, dyspnea with exertion, orthopnea, wheezing, stridor, hemoptysis GASTROINTESTINAL: Absent: abdominal pain, abdominal distension, nausea, vomiting, diarrhea, constipation, melena, hematochezia GENITOURINARY: Present: dysuria, frequency Absent: urgency, hesitancy, hematuria, flank pain, genital pain MUSCULOSKELETAL: Absent: myalgia, arthralgia, joint swelling SKIN: Absent: rash, itching, pallor HEMATOLOGIC/IMMUNOLOGIC: Absent: easy bleeding, easy bruising, lymphadenopathy, frequent infections ENDOCRINE: Absent: unexplained weight gain, unexplained weight loss, heat intolerance, cold intolerance NEUROLOGIC: Absent: headache, focal weakness or paresthesias, dizziness, unsteady gait, seizure, mental status changes, bladder or bowel incontinence PSYCHIATRIC: Absent: anxiety, depression, suicidal or homicidal ideation, hallucinations. Is the patient limited [place]olan proficient: No *Physical Exam - Vital Signs Last Vital Signs Temp Pulse Resp BP Pulse Ox 98.2 F 90 18 121/82 98 08/29/17 16:24 08/29/17 16:24 08/29/17 16:24 08/29/17 16:24 08/29/17 16:24 - Physical Exam Comments: 08/29/17 17:19 GENERAL: Well developed, well nourished. Awake and alert. No acute distress. HEENT: Normocephalic, atraumatic. PERRLA, EOMI. No conjunctival pallor. Sclera are non- icteric. Moist mucous membranes. Oropharynx is clear. NECK: Supple. Full ROM. No JVD. Carotid pulses 2+ and symmetric, without bruits. No thyromegaly. No lymphadenopathy. CARDIOVASCULAR: Regular rate and rhythm. No murmurs, rubs, or gallops. Distal pulses are 2+ and symmetric. PULMONARY: No evidence of respiratory distress. Lungs clear to auscultation bilaterally. No wheezing, rales or rhonchi. ABDOMINAL: Soft. Non-tender. Non-distended. No rebound or guarding. No organomegaly. Normoactive bowel sounds. MUSCULOSKELETAL Normal range of motion at all joints. No bony deformities or tenderness. No CVA tenderness. EXTREMITIES: No cyanosis. No clubbing. No edema. No calf tenderness. SKIN: Warm and dry. Normal capillary refill. No rashes. No jaundice. NEUROLOGICAL: Alert, awake, appropriate. Cranial nerves 2-12 intact. No deficits to light touch and temperature in face, upper extremities and lower extremities. No motor deficits in the in face, upper extremities and lower extremities. Normoreflexic in the upper and lower extremities. Normal speech. Toes are down- going bilaterally. Gait is normal without ataxia. PSYCHIATRIC: Cooperative. Good eye contact. Appropriate mood and affect. Medical Decision Making - Medical Decision Making 08/29/17 17:19 Patient is a 32-year-old female past medical history of kidney stones who presents emergency department today complaining of urinary issues. Given history and physical most likely a UTI. No CVA tenderness, fevers. Urine has been ordered in [facility]. Waiting for results. Urine is negative. 08/29/17 17:29 UA with over 300 WBC's; will treat for UTI at this time. D/c home with antibiotics, and f/u. *DC/Admit/Observation/Transfer Diagnosis at time of Disposition: UTI (urinary tract infection) Qualifiers: Urinary tract infection type: acute cystitis Hematuria presence: with hematuria Qualified Code(s): N30.01 - Acute cystitis with hematuria - Discharge Dispostion Disposition: HOME Condition at time of disposition: Good Admit: No - Prescriptions Prescriptions: Nitrofurantoin Monohyd/M-Cryst [Macrobid -] 100 mg PO BID #14 capsule Phenazopyridine HCl [Pyridium -] 100 mg PO TID #21 tablet - Referrals Referrals: Michelle Cooper [Primary Care Provider] - - Patient Instructions Printed Discharge Instructions: DI for Urinary Tract Infection (UTI) Additional Instructions: You have a urinary tract infection. Drink plenty of fluids. Take your antibiotic (macrobid) as prescribed. You were also prescribed pyridium. This should help with the burning sensation. Take it with food three times a day. Follow up with your primary care doctor this week. Return to the ED if you have worsening pain, fevers, chills, nausea, vomiting, or any changes in your symptoms. - Post Discharge Activity
[2017-08-29 16:59] LABS: URINE APPEARANCE CLOUDY; URINE BILIRUBIN NEGATIVE (NEGATIVE); URINE BLOOD 3+ (NEGATIVE); URINE COLOR DKYELLOW; URINE GLUCOSE (UA) NEGATIVE (NEGATIVE); URINE KETONE NEGATIVE (NEGATIVE); URINE NITRITE NEGATIVE (NEGATIVE); URINE UROBILINOGEN NEGATIVE mg/dL (0.2-1.0)
[2017-08-29] MEDS ORDERED: ACETAMINOPHEN 500 MG TABLET (FP) ONE (17:03)
[2017-08-29 17:21] LABS: URINE PROTEIN 2+ (NEGATIVE)
[2017-08-29 17:22] LABS: URINE BACTERIA RARE /hpf (NONE SEEN); URINE MUCUS RARE; URINE RBC 1628; URINE WBC 334
[2017-08-29 20:41] LABS: URINE LEUK ESTERASE TRACE (NEGATIVE)
== END 2017-08-29 17:36 | disposition home or self-care (01) ==
LOC: JERFT 16:22
DX: N30.01 Acute cystitis with hematuria (principal)
CPT/HCPCS: 81003; 81015; 84703; 87086; 87186; 99281-25

== ENCOUNTER 2018-03-16 11:55 | Emergency (ER) | payer OTHER ==
--- NOTE | 2018-03-16 11:56 | PDOC ---
History of Present Illness - General Chief Complaint: Pain Stated Complaint: ABDOMINAL PAIN,NAUSEA,VOMITING Time Seen by Provider: 03/16/18 11:55 - History of Present Illness Initial Comments: 32 year old female with remote history of kidney stones and multiple presentations in the past for sudden onset N/V/ abd pain presenting again with sudden onset N/V/Abd pain starting yesterday. Patient states that she has had these episodes in the past but has been asymptomatic for the past 5 months ( corroborated by our records). However, she failed to follow up with GI because during that time as well. Denies any recent stress, travel, drug use or out of the ordinary dietary change. Describes the abdominal pain as crampy and the vomiting as NBNB. Denies fevers, chills, chest pain, headache, cough, or other symptoms. 03/16/18 12:06 Past History - Past Medical History Allergies/Adverse Reactions: Allergies Allergy/AdvReac Type Severity Reaction Status Date / Time ketorolac tromethamine Allergy Intermediate Itching Verified 03/16/18 11:56 [From Toradol] Home Medications: Ambulatory Orders Famotidine [Pepcid] 20 mg PO DAILY #20 tablet 03/16/18 Metoclopramide HCl [Reglan] 5 mg PO BID PRN #10 tablet 03/16/18 Ondansetron [Zofran *Odt*] 8 mg SL BID #10 od.tablet 03/16/18 Anemia: No Asthma: Yes Cancer: No Cardiac Disorders: No CVA: No COPD: No CHF: No DVT: No Dementia: No Diabetes: No GI Disorders: No Disorders: No HTN: No Hypercholesterolemia: No Kidney Stones: Yes Liver Disease: No Psychiatric Problems: Yes (ANXIETY) Seizures: No Thyroid Disease: No - Surgical History Abdominal Surgery: Yes (EXP LAP) Appendectomy: No Cardiac Surgery: No Cholecystectomy: No Lung Surgery: No Neurologic Surgery: No Orthopedic Surgery: No - Reproductive History (#): 9 Para: 2 Cervical CA: No Dysfunctional Uterine Bleeding: No Ectopic : No Endometrial CA: No Endometriosis: Yes Therapeutic (s) & number: No Tubal Ligation: No Spontaneous : 7 - Immunization History Immunization Up to Date: Yes - Suicide/Smoking/Psychosocial Hx Smoking Status: Yes Smoking History: Current every day smoker Have you smoked in the past 12 months: Yes Number of Cigarettes Smoked Daily: 10 If you are a former smoker, when did you quit?: T 'Breaking Loose' booklet given: 06/21/16 Hx Alcohol Use: Yes (OCCASIONAL) Drug/Substance Use Hx: No Substance Use Type: None Hx Substance Use Treatment: No Review of Systems - Review of Systems Constitutional: No: Chills, Diaphoresis, Fever HEENTM: No: Blurred Vision, Tearing Respiratory: No: Cough, Orthopnea, Shortness of Breath Cardiac (ROS): No: Edema, Irregular Heart Rate ABD/GI: No: Constipated, Diarrhea, Nausea, Vomiting : No: Burning, Dysuria, Discharge Musculoskeletal: No: Back Pain, Joint Pain Integumentary: No: Bruising, Flushing, Lesions Neurological: No: Numbness, Tingling, Tremors, Weakness Psychiatric: Yes: Anxiety. No: Depression Endocrine: No: Excessive Sweating, Flushing Hematologic/Lymphatic: No: Anemia, Blood Clots, Easy Bleeding *Physical Exam - Physical Exam General Appearance: Yes: Nourished, Appropriately Dressed, Apparent Distress, Mild Distress HEENT: positive: EOMI, DAT, Normal ENT Inspection, Normal Voice Neck: positive: Trachea midline, Normal Thyroid, Supple. negative: Tender, Rigid Respiratory/Chest: positive: Lungs Clear, Normal Breath Sounds. negative: Chest Tender, Respiratory Distress, Accessory Muscle Use Cardiovascular: positive: Regular Rhythm, Regular Rate Gastrointestinal/Abdominal: positive: Normal Bowel Sounds, Flat, Soft. negative : Tender Lymphatic: negative: Adenopathy, Tenderness Musculoskeletal: positive: Normal Inspection. negative: CVA Tenderness, Decreased Range of Motion Extremity: positive: Normal Capillary Refill, Normal Inspection, Normal Range of Motion. negative: Tender Integumentary: positive: Normal Color, Dry, Warm Neurologic: positive: Fully Oriented, Alert, Normal Mood/Affect, Normal Response , Motor Strength 5/5 ED Treatment Course - LABORATORY CBC & Chemistry Diagram: 03/16/18 12:10 03/16/18 12:10 Medical Decision Making - Medical Decision Making 32 year old female with PMH of multiple episodes of nausea, vomiting, and abdominal pain presentin gwith the same symptoms. Her episode mostly resolved with ample IV opioids, benzodiazepines, zofran, maalox, pepcid, and IV hydration. Unclear cause for her GI symptioms but this could be related to gastric lining disease i.e. peptic ulcer. Patient will be discharged with GI follow up, pepcid, zofran, reglan, and a few days of percocet. 03/16/18 16:34 *DC/Admit/Observation/Transfer Diagnosis at time of Disposition: Gastritis Qualifiers: Gastritis type: unspecified gastritis Chronicity: acute Gastritis bleeding: without bleeding Qualified Code(s): K29.00 - Acute gastritis without bleeding Abdominal pain Qualifiers: Abdominal location: generalized Qualified Code(s): R10.84 - Generalized abdominal pain - Discharge Dispostion Disposition: HOME Condition at time of disposition: Improved Decision to Admit order: No - Prescriptions Prescriptions: Famotidine [Pepcid] 20 mg PO DAILY #20 tablet Metoclopramide HCl [Reglan] 5 mg PO BID PRN #10 tablet PRN Reason: Nausea And/Or Vomiting Ondansetron [Zofran *Odt*] 8 mg SL BID #10 od.tablet - Referrals Referrals: Luis Alberto Mosquera DO [Staff Physician] - - Patient Instructions Printed Discharge Instructions: DI for Abdominal Pain-Adult Additional Instructions: You need to see the GI doctor for your abdominal pain. Please use the medication as intended and abvoid alcohol and smoking. Please return to the ED for new or worsening symptoms. - Post Discharge Activity
[2018-03-16 11:59] VITALS: BMI 24.2
[2018-03-16 12:03] VITALS: TEMP 98
[2018-03-16] MEDS ORDERED: MAG HYDROX/AL HYDROX/SIMETH 30 ML UNIT-DOSE CUP PO ONE (12:04)
[2018-03-16] MEDS ORDERED: SODIUM CHLORIDE 0.9% 500 ML INFUS.BAG IV ONE (12:04)
[2018-03-16] MEDS ORDERED: ONDANSETRON 4 MG/2 ML VIAL IVPUSH ONE (12:04)
[2018-03-16] MEDS ORDERED: FAMOTIDINE 20 MG/50 ML IVPB 20 MG/50 ML MG IVPB ONE ×2 (12:04→12:08)
[2018-03-16] MEDS ORDERED: SUCRALFATE 1 GM/10 ML UNIT DOSE CUPS PO ONE (12:04)
[2018-03-16] MEDS ORDERED: ACETAMINOPHEN 1000 MG/100 ML VIAL (NON FORMULARY) IVPB ONE (12:05)
[2018-03-16] MEDS ORDERED: ACETAMINOPHEN INJECTION 100 ML IVPB ONE (12:08)
[2018-03-16] MEDS ORDERED: SUCRALFATE 1 GM/10 ML UNIT DOSE CUPS ONE (12:08)
[2018-03-16] MEDS ORDERED: MAG HYDROX/AL HYDROX/SIMETH 30 ML UNIT-DOSE CUP ONE (12:09)
[2018-03-16] MEDS ORDERED: ONDANSETRON 4 MG/2 ML VIAL ONE ×2 (12:09→14:14)
--- NOTE | 2018-03-16 12:14 | PDOC ---
Attending Attestation - Resident Resident Name: GustavoSherine - ED Attending Attestation I have performed the following: I have examined & evaluated the patient, The case was reviewed & discussed with the resident, I agree w/resident's findings & plan, Exceptions are as noted - HPI HPI: 03/16/18 12:08 32 yo F c/ hx of endometriosis, chronic abdominal pain (possible gastroparesis) p/w acute on chronic abdominal pain. The patient reports that she had this same exact pain approximately 6 months ago. States that it is a sharp, burning pain in the epigastric with nausea and vomiting. No fevers, chills, or diarrhea. No sick contacts or recent travels. The pain started yesterday. States that she was given a follow up with GI but did not have an opportunity to follow up with a GI physician. No chest pain. - Physicial Exam PE: 03/16/18 12:11 GENERAL: Awake, alert, and fully oriented, uncomfortable appearing. Dry mucous membranes. HEAD: No signs of trauma EYES: PERRLA, EOMI, sclera anicteric, conjunctiva clear ENT: Auricles normal inspection, hearing grossly normal, nares patent NECK: Normal ROM, supple ABDOMEN: Soft, TTP epigastric. everett sign negative. NEUROLOGICAL: Cranial nerves II through XII grossly intact. SKIN: Warm, Dry, normal turgor, no rashes or lesions noted. - Medical Decision Making 03/16/18 12:11 Vital Signs Temp Pulse Resp BP Pulse Ox 98 F 73 18 157/104 100 03/16/18 11:55 03/16/18 11:55 03/16/18 11:55 03/16/18 11:55 03/16/18 11:55 This is likely her acute on chronic abdominal pain. This could be gastritis vs. gastroparesis. Labs, IVF, anti-emetics, pain control. If workup unremarkable, and pain improved, pt will be reinforced to follow up with GI as she may require another endoscopy. 03/16/18 16:00 CBC, BMP 03/16/18 12:10 03/16/18 12:10 CMP Sodium 138 mmol/L (136-145) 03/16/18 12:10 Potassium 3.8 mmol/L (3.5-5.1) 03/16/18 12:10 Chloride 104 mmol/L (98-107) 03/16/18 12:10 Carbon Dioxide 26 mmol/L (22-28) 03/16/18 12:10 Anion Gap 8 (8-16) 03/16/18 12:10 BUN 13 mg/dl (7-18) 03/16/18 12:10 Creatinine 0.8 mg/dl (0.6-1.3) D 03/16/18 12:10 Creat Clearance w eGFR > 60 (>60) 03/16/18 12:10 Random Glucose 175 mg/dl (74-106) H 03/16/18 12:10 Calcium 9.2 mg/dl (8.4-10.2) 03/16/18 12:10 Total Bilirubin 0.7 mg/dl (0.2-1.0) 03/16/18 12:10 AST 25 U/L (10-42) 03/16/18 12:10 ALT 19 U/L (10-40) 03/16/18 12:10 Alkaline Phosphatase 50 U/L (32-92) 03/16/18 12:10 Total Protein 7.5 g/dl (6.4-8.3) 03/16/18 12:10 Albumin 4.7 g/dl (3.5-5.0) 03/16/18 12:10 Total Amylase 39 U/L (25-125) D 03/16/18 12:10 Lipase 83 U/L (73-393) 03/16/18 12:10 Urine Test Results Urine Color Brown 03/16/18 12:30 Urine Appearance Sl cloudy 03/16/18 12:30 Urine pH 5.5 (4.5-8) 03/16/18 12:30 Ur Specific [place] >= 1.030 (1.005-1.025) H 03/16/18 12:30 Urine Protein 2+ (NEGATIVE) H 03/16/18 12:30 Urine Glucose (UA) Negative (NEGATIVE) 03/16/18 12:30 Urine Ketones 2+ (NEGATIVE) H 03/16/18 12:30 Urine Blood 3+ (NEGATIVE) H 03/16/18 12:30 Urine Nitrite Negative (NEGATIVE) 03/16/18 12:30 Urine Bilirubin 1+ (NEGATIVE) H 03/16/18 12:30 Ur Leukocyte Esterase Trace (NEGATIVE) H 03/16/18 12:30 Urine RBC 10-20 /hpf (0-3) 03/16/18 12:30 Urine WBC 5-10 (0-5) 03/16/18 12:30 Ur Epithelial Cells Moderate /HPF 03/16/18 12:30 Urine Bacteria Few /hpf (NEGATIVE) 03/16/18 12:30 Despite numerous medications, patient still remains in pain and nausea and vomiting, with inability to tolerate PO. Pt is currently on her menstrual cycle. This pain may also be secondary to endometriosis. Regardless, will need to admit the patient to the hospital. 03/16/18 16:34 We were about to admit the patient, but the patient reports that she feels better enough. She really does not want to stay in the hospital. I instructed the patient that if she has severe pain, she should return to the ER. She verbalizes understanding and agrees with plan. Pt's brother will drive patient home.
[2018-03-16] MEDS ORDERED: morphine CARPU-JECT 4 MG/1 ML DISP.SYRIN IVPUSH ONE ×3 (12:18→13:47)
[2018-03-16] MEDS ORDERED: morphine SULFATE 4 MG/ML VIAL ONE ×3 (12:26→14:14)
[2018-03-16 12:40] LABS: BASO % 0.8 % (0-2.0); EOS % 0.3 % (0-4.5); HEMATOCRIT 49.3 % (32.4-45.2); HEMOGLOBIN 17.2 GM/dl (10.7-15.3); LYMPH % 18.6 % (8-40); MCH 34.4 pg (25.7-33.7); MCHC 34.8 g/dl (32.0-36.0); MEAN CELL VOLUME 98.7 fl (80-96); MEAN PLT VOLUME 9.1 fl (7.5-11.1); MONO % 3.3 % (3.8-10.2); PLATELET COUNT 229 K/MM3 (134-434); RBC 4.99 M/mm3 (3.60-5.2); RDW 12.8 % (11.6-15.6); WHITE BLOOD COUNT 9.6 K/mm3 (4.0-10.8)
[2018-03-16 12:41] LABS: PH,URINE 5.5 (4.5-8); URINE BILIRUBIN 1+ (NEGATIVE); URINE GLUCOSE (UA) Negative (NEGATIVE); URINE KETONE 2+ (NEGATIVE); URINE NITRITE Negative (NEGATIVE); URINE UROBILINOGEN 0.2 (0.2-1.0)
[2018-03-16 12:45] LABS: ALBUMIN 4.7 g/dl (3.5-5.0); ALK PHOS 50 U/L (32-92); AMYLASE 39 U/L (25-125); ANION GAP 8 (8-16); BILIRUBIN,TOTAL 0.7 mg/dl (0.2-1.0); BLOOD UREA NITROGEN 13 mg/dl (7-18); CALCIUM 9.2 mg/dl (8.4-10.2); CHLORIDE 104 mmol/L (98-107); CO2 26 mmol/L (22-28); CREATININE 0.8 mg/dl (0.6-1.3); GLUCOSE,RANDOM 175 mg/dl (74-106); POTASSIUM 3.8 mmol/L (3.5-5.1); SGOT/AST 25 U/L (10-42); SGPT/ALT 19 U/L (10-40); SODIUM 138 mmol/L (136-145); TOT PROT 7.5 g/dl (6.4-8.3)
[2018-03-16 12:45] LABS: URINE APPEARANCE SL CLOUDY; URINE COLOR BROWN; URINE LEUK ESTERASE TRACE (NEGATIVE); URINE PROTEIN 2+ (NEGATIVE)
[2018-03-16 12:47] LABS: HCG,QUALITATIVE URINE Negative
[2018-03-16] MEDS ORDERED: METOCLOPRAMIDE HCL INJECTION 10 MG/2 ML VIAL IVPUSH ONE (12:57)
[2018-03-16 13:00] LABS: EPI CELLS MODERATE /HPF; URINE BACTERIA FEW /hpf (NEGATIVE)
[2018-03-16] MEDS ORDERED: SODIUM CHLORIDE 1,000 ML IV STA (13:14)
[2018-03-16] MEDS ORDERED: ONDANSETRON 4 MG/2 ML VIAL IVPB ONE (13:47)
[2018-03-16 14:21] LABS: LIPASE 83 U/L (73-393)
[2018-03-16] MEDS ORDERED: PROCHLORPERAZINE INJECTION 10 MG/2 ML VIAL IVPB ONE (15:07)
[2018-03-16] MEDS ORDERED: LORazepam 2 MG/ML SDV VIAL ONE (15:13)
[2018-03-16 16:58] VITALS: BP 117/70; PULSE 74
== END 2018-03-16 16:58 | disposition home or self-care (01) ==
LOC: FER 11:55
PROC: 3E033NZ Introduction of Analgesics, Hypnotics, Sedatives into Peripheral Vein, Percutaneous Approach (ICD-10-PCS; principal; 2018-03-16)
PROC: 3E033GC Introduction of Other Therapeutic Substance into Peripheral Vein, Percutaneous Approach (ICD-10-PCS; 2018-03-16)
PROC: 3E0337Z Introduction of Electrolytic and Water Balance Substance into Peripheral Vein, Percutaneous Approach (ICD-10-PCS; 2018-03-16)
DX: K29.00 Acute gastritis without bleeding (principal); R10.84 Generalized abdominal pain; F41.9 Anxiety disorder, unspecified; J45.909 Unspecified asthma, uncomplicated
CPT/HCPCS: 36415; 80053; 81003; 81015; 82150; 83690; 84703; 85025; 99283-25; J0131; J7030

== ENCOUNTER 2018-03-21 09:51 | Emergency (ER) | payer OTHER ==
[2018-03-21 10:09] VITALS: TEMP 98.2; BMI 24.2
[2018-03-21] MEDS ORDERED: METOCLOPRAMIDE HCL INJECTION 10 MG/2 ML VIAL IVPUSH ONE (10:35)
[2018-03-21] MEDS ORDERED: SODIUM CHLORIDE 1,000 ML IV ONE ×2 (10:35→12:19)
[2018-03-21] MEDS ORDERED: morphine CARPU-JECT 2 MG/1 ML DISP.SYRIN IVPUSH ONE (10:35)
[2018-03-21] MEDS ORDERED: morphine SULFATE 4 MG/ML VIAL ONE ×2 (10:40→11:41)
[2018-03-21 10:50] LABS: URINE APPEARANCE Clear; URINE BILIRUBIN Negative (NEGATIVE); URINE BLOOD Trace-intact (NEGATIVE); URINE COLOR AMBER; URINE GLUCOSE (UA) Negative (NEGATIVE); URINE KETONE Negative (NEGATIVE); URINE LEUK ESTERASE TRACE (NEGATIVE); URINE NITRITE Negative (NEGATIVE); URINE PROTEIN Negative (NEGATIVE); URINE UROBILINOGEN 0.2 (0.2-1.0)
--- NOTE | 2018-03-21 10:54 | PDOC ---
History of Present Illness - General Chief Complaint: Pain Stated Complaint: ABDOMINAL PAIN Time Seen by Provider: 03/21/18 09:58 History Source: Patient Exam Limitations: No Limitations - History of Present Illness Travel History: No Initial Comments: 03/21/18 10:54 32y F hx of chronic abd pain, endometriosis, asthma, migraine headmaritza presents with abdominal pain. Pt states she was evaulated in the ED on . Pt states she has been having chronic abdominal pain for years, but has been relatively well controlled. Her pain is diffuse in the abdomen, constant, burning/cramping, nonradiating.. state it feels similar to her previous pain. She started having pain again last week, was worked up and then discharged with some meds, she hadnt needed the percocet until the weekend, but has been taking it without signifiant improvement. The pt endorses nausea without vomiting. pt denies any fever/chills, chest pain, shortness of breath, back pain, dysuria, diarrhea, melena, bpr. no association of the pain with food. 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 she recently had a genetic testing but results are not availbnle. surgical hx of laparoscopy, cseciton Past History - Past Medical History Allergies/Adverse Reactions: Allergies Allergy/AdvReac Type Severity Reaction Status Date / Time ketorolac tromethamine Allergy Intermediate Itching Verified 03/21/18 09:54 [From Toradol] Home Medications: Ambulatory Orders Famotidine [Pepcid] 20 mg PO DAILY #20 tablet 03/16/18 Metoclopramide HCl [Reglan] 5 mg PO BID PRN #10 tablet 03/16/18 Oxycodone HCl/Acetaminophen [Percocet 5-325 mg Tablet] 1 tab PO Q6H PRN #8 tablet MDD 4 03/16/18 Anemia: No Asthma: Yes Cancer: No Cardiac Disorders: No CVA: No COPD: No CHF: No DVT: No Dementia: No Diabetes: No GI Disorders: No Disorders: No HTN: No Hypercholesterolemia: No Kidney Stones: Yes Liver Disease: No Psychiatric Problems: Yes (ANXIETY) Seizures: No Thyroid Disease: No Other medical history: MTHFR - Surgical History Abdominal Surgery: Yes (EXP LAP) Appendectomy: No Cardiac Surgery: No Cholecystectomy: No Lung Surgery: No Neurologic Surgery: No Orthopedic Surgery: No - Reproductive History Is Patient Now?: No (#): 9 Para: 2 Cervical CA: No Dysfunctional Uterine Bleeding: No Ectopic : No Endometrial CA: No Endometriosis: Yes Therapeutic (s) & number: Yes (1) Tubal Ligation: No Spontaneous : 6 - Immunization History Immunization Up to Date: Yes - Suicide/Smoking/Psychosocial Hx Smoking Status: Yes Smoking History: Current every day smoker Have you smoked in the past 12 months: Yes Number of Cigarettes Smoked Daily: 10 If you are a former smoker, when did you quit?: T Information on smoking cessation initiated: Yes 'Breaking Loose' booklet given: 06/21/16 Hx Alcohol Use: Yes (SOCIAL) Drug/Substance Use Hx: Yes (MARIJUANA) Substance Use Type: None Hx Substance Use Treatment: No Abd/GI Specific PMHX - Complaint Specific PMHX Colitis: No Diverticulitis: No Gall Bladder Disease: No GERD: No Hepatitis: No Irritable Bowel Synd (IBS): No Pancreatitis: No GI Ulcer Disease: No Review of Systems - Review of Systems Able to Perform ROS?: Yes Comments:: 03/21/18 11:15 Constitutional - no reported Fever, Chills, HEENT: no reported vision changes, sore throat Respiratory: no reported cough, sob, hemoptysis Cardiac: no reported chest pain, palpitations, light headedness, leg swelling Abd/GI: no reported abd pain, nausea, vomiting, blood per rectum, melena, diarrhea : no reported dysuria, frequency, discharge Musculskelatal - no reported back pain, joint swelling skin - no reported bruising, erythema, rash neurological: no reported headache, numbness, focal weakness, tingling, ataxia, hematologic: no reported easy bruising, easy bleeding *Physical Exam - Vital Signs Last Vital Signs Temp Pulse Resp BP Pulse Ox 98.2 F 84 20 151/82 100 03/21/18 09:53 03/21/18 09:53 03/21/18 09:53 03/21/18 09:53 03/21/18 09:53 - Physical Exam Comments: 03/21/18 11:17 GENERAL: The patient is awake, alert, and fully oriented, appears to be uncomfortable HEAD: Normocephalic, atraumatic. EYES: extraocular movements intact, sclera anicteric, conjunctiva clear. ENT: Normal voice, Moist mucous membranes. NECK: Normal range of motion, supple LUNGS: Breath sounds equal, clear to auscultation bilaterally. No wheezes, no rhonchi, no rales. HEART: Regular rate and rhythm, normal S1 and S2 without murmur, rub or gallop. ABDOMEN: Soft, nontender, normoactive bowel sounds. No guarding, no rebound. . No CVA tenderness EXTREMITIES: Normal range of motion, no edema. No clubbing or cyanosis. No cords, erythema, or tenderness. NEUROLOGICAL: No facial assymetry, Normal speech, PSYCH: Normal mood, normal affect. SKIN: Warm, Dry, normal turgor, ED Treatment Course - LABORATORY CBC & Chemistry Diagram: 03/21/18 11:02 03/21/18 11:02 Medical Decision Making - Medical Decision Making 03/21/18 11:18 32y f hx of chronic abd pain, endometriosis, presents with recurrence of her symptoms - on exam pts abd is soft nontender, however she occasioanlly looks uncomfortable ddx: endometriosis, gastritis, recurrence of her chronic abd pain will recheck her labs, ua, hcg will give morphine, reglan, pepcid/maalox 03/21/18 12:55 pt still in pain and is now vomiting her repeat abd soft, but states she is still in alot of pain will obtain ct abdomen 03/21/18 15:06 pt feeling improved walking around appears much more comfortable awaiting CT abd resutls if ct neg, anticipate dc with gi fu *DC/Admit/Observation/Transfer Diagnosis at time of Disposition: Abdominal pain Qualifiers: Abdominal location: generalized Qualified Code(s): R10.84 - Generalized abdominal pain - Discharge Dispostion Disposition: HOME Condition at time of disposition: Stable Decision to Admit order: No - Referrals Referrals: Wilmar Cuevas MD [Staff Physician] - - Patient Instructions Printed Discharge Instructions: DI for Abdominal Pain-Adult Additional Instructions: Return to the emergency department immediately with ANY new, persistent or worsening symptoms including worsening abdominal pain, fevers, inability to tolerate oral intake, chest pain, shortness of breath or any other concerns. Stay well hydrated. You MUST call and follow up with gastroenterology in 2-3 days for further evalauation, if you cannot make an appointment with yours, you can call Dr. Cuevas. Your emergency department visit is not complete without a followup with your doctor for reevaluation. Please make sure your doctor reviews the results of your emergency evaluation. - Post Discharge Activity
[2018-03-21 11:22] LABS: BASO % 0.9 % (0-2.0); EOS % 0.5 % (0-4.5); HEMATOCRIT 48.2 % (32.4-45.2); HEMOGLOBIN 16.5 GM/dl (10.7-15.3); LYMPH % 14.3 % (8-40); MCH 33.7 pg (25.7-33.7); MCHC 34.3 g/dl (32.0-36.0); MEAN CELL VOLUME 98.2 fl (80-96); MEAN PLT VOLUME 9.4 fl (7.5-11.1); MONO % 3.4 % (3.8-10.2); NEUT % 80.9 % (42.8-82.8); PLATELET COUNT 236 K/MM3 (134-434); RBC 4.91 M/mm3 (3.60-5.2); WHITE BLOOD COUNT 13.2 K/mm3 (4.0-10.8)
[2018-03-21 11:30] LABS: ALBUMIN 4.5 g/dl (3.5-5.0); ALK PHOS 46 U/L (32-92); ANION GAP 8 (8-16); BLOOD UREA NITROGEN 9 mg/dl (7-18); CALCIUM 9.3 mg/dl (8.4-10.2); CHLORIDE 105 mmol/L (98-107); CO2 22 mmol/L (22-28); GLUCOSE,RANDOM 163 mg/dl (74-106); POTASSIUM 3.7 mmol/L (3.5-5.1); SGOT/AST 18 U/L (10-42); SGPT/ALT 18 U/L (10-40); SODIUM 135 mmol/L (136-145); TOT PROT 7.2 g/dl (6.4-8.3)
[2018-03-21 11:32] LABS: EPI CELLS MANY /HPF; URINE RBC 0-3 /hpf (0-3)
[2018-03-21 11:33] LABS: URINE BACTERIA RARE /hpf (NEGATIVE)
[2018-03-21] MEDS ORDERED: morphine CARPU-JECT 4 MG/1 ML DISP.SYRIN IVPUSH ONE ×2 (11:34→12:36)
[2018-03-21] MEDS ORDERED: MAG HYDROX/AL HYDROX/SIMETH -MYLANTA- ORAL SUSPENSION PO ONE (11:34)
[2018-03-21] MEDS ORDERED: FAMOTIDINE 20 MG/50 ML IVPB 20 MG in PREMIX 50 IVPB ONE (11:34)
[2018-03-21] MEDS ORDERED: PANTOPRAZOLE SODIUM 40 MG in SODIUM CHLORIDE 100 ML IVPB ONE (11:36)
[2018-03-21] MEDS ORDERED: MAG HYDROX/AL HYDROX/SIMETH 30 ML UNIT-DOSE CUP ONE (11:41)
[2018-03-21] MEDS ORDERED: PANTOPRAZOLE SODIUM 40 MG VIAL ONE (11:41)
[2018-03-21 11:43] LABS: BILIRUBIN,TOTAL < 0.5 mg/dl (0.2-1.0); CREATININE < 0.8 mg/dl (0.6-1.3)
[2018-03-21] MEDS ORDERED: ONDANSETRON 4 MG/2 ML VIAL IVPB ONE (12:36)
[2018-03-21] MEDS ORDERED: HYDROmorphone HCL CARPU-JECT 1 MG/1 ML DISP.SYRIN IVPUSH ONE (12:53)
[2018-03-21 13:03] VITALS: BP 145/86; PULSE 73
[2018-03-21] MEDS ORDERED: HYDROmorphone HCL CARPU-JECT 1 MG/1 ML DISP.SYRIN ONE (13:05)
[2018-03-21] MEDS ORDERED: ONDANSETRON 4 MG/2 ML VIAL ONE (13:05)
[2018-03-21 19:59] LABS: LIPASE 210 U/L (73-393)
== END 2018-03-21 16:58 | disposition home or self-care (01) ==
LOC: FER 09:51
PROC: 3E033NZ Introduction of Analgesics, Hypnotics, Sedatives into Peripheral Vein, Percutaneous Approach (ICD-10-PCS; principal; 2018-03-21)
PROC: 3E033GC Introduction of Other Therapeutic Substance into Peripheral Vein, Percutaneous Approach (ICD-10-PCS; 2018-03-21)
PROC: 3E0337Z Introduction of Electrolytic and Water Balance Substance into Peripheral Vein, Percutaneous Approach (ICD-10-PCS; 2018-03-21)
DX: R10.84 Generalized abdominal pain (principal); G89.29 Other chronic pain; N80.9 Endometriosis, unspecified
CPT/HCPCS: 36415; 74177-TC; 80053; 81003; 81015; 83690; 84703; 85025; 96361; 96365; 96375; 96376; 99283-25; J7030

== ENCOUNTER 2018-05-04 09:52 | Day surgery (SDC) | payer OTHER ==
[2018-05-04] MEDS ORDERED: PROPOFOL 20 ML ONE ×3 (10:33)
[2018-05-04] MEDS ORDERED: LIDOCAINE HCL 2% (20ML MULTI-DOSE VIAL) NR ONE (10:33)
[2018-05-04 11:14] VITALS: BMI 23.7
[2018-05-04 12:34] VITALS: TEMP 97.9
--- NOTE | 2018-05-04 13:05 | PROC ---
Endoscopy Procedure Endoscopy procedure completed. Please see scanned procedure report.
[2018-05-04 14:29] VITALS: BP 113/71; PULSE 57
--- NOTE | 2018-05-05 18:42 | PATH ---
Surgical Pathology Report Patient Name: MYRA FIGUEROA [facility]. Rec. #: [id number] /Age/Gender: 1985 (Age: 32) / F Account: [id number] Location: U-ENDOSCOPY Taken: 05/04/2018 Received: 05/04/2018 Reported: 05/05/2018 Physicians: Wilmar Cuevas M.D. Specimen(s) Received A: BX DUODENUM SECOND PORTION B: BX STOMACH ANTRUM BODY FUNDUS C: BX ESOPHAGUS D: BX ILEUM E: BX ASCENDING COLON F: BX TRANSVERSE COLON G: BX DESCENDING COLON H: BX SIGMOID I: BX RECTUM Clinical History Indeterminate colitis Postoperative diagnosis: Gastritis, colitis Final Diagnosis A. SECOND PORTION DUODENUM, BIOPSY: DUODENAL MUCOSA WITH MILD CHRONIC DUODENITIS. B. ANTRUM, BODY, AND FUNDUS, BIOPSY: GASTRIC MUCOSA WITH NO DIAGNOSTIC ABNORMALITIES. IMMUNOSTAIN IS NEGATIVE FOR H. PYLORI ORGANISMS. C. ESOPHAGUS, BIOPSY: GASTROESOPHAGEAL JUNCTIONAL MUCOSA WITH REFLUX ESOPHAGITIS. D. ILEUM, BIOPSY: ILEUM MUCOSA WITH NO DIAGNOSTIC ABNORMALITIES. E. ASCENDING COLON, BIOPSY: COLONIC MUCOSA WITH MILD CHRONIC INFLAMMATION. F. TRANSVERSE COLON, BIOPSY: COLONIC MUCOSA WITH NO DIAGNOSTIC ABNORMALITIES. G. DESCENDING COLON, BIOPSY: COLONIC MUCOSA WITH MILD CHRONIC INFLAMMATION. H. SIGMOID COLON, BIOPSY: COLONIC MUCOSA WITH MILD CHRONIC INFLAMMATION. I. RECTUM, BIOPSY: COLONIC MUCOSA WITH NO DIAGNOSTIC ABNORMALITIES. Electronically Signed Layton Lind M.D. Gross Description A. Received in formalin, labeled "biopsy second portion of duodenum" are 2 vences, irregular portions of soft tissue averaging 0.3 cm. in greatest dimension. The specimens are submitted in toto in one cassette. B. Received in formalin, labeled "biopsy antrum, body, fundus" are 3 vences, irregular portions of soft tissue ranging from 0.3-0.5 cm. in greatest dimension. The specimens are submitted in toto in one cassette. C. Received in formalin, labeled "biopsy esophagus" is a vences, irregular portion of soft tissue measuring 0.4 cm. in greatest dimension. The specimen is submitted in toto in one cassette. D. Received in formalin, labeled "biopsy ileum" are 3 vences, irregular portions of soft tissue ranging from 0.1-0.3 cm. in greatest dimension. The specimens are submitted in toto in one cassette. E. Received in formalin, labeled "biopsy ascending colon" are 3 vences, irregular portions of soft tissue ranging from 0.1-0.3 cm. in greatest dimension. The specimens are submitted in toto in one cassette. F. Received in formalin, labeled "biopsy transverse colon" are 2 vences, irregular portions of soft tissue measuring 0.2 and 0.3 cm. in greatest dimension. The specimens are submitted in toto in one cassette. G. Received in formalin, labeled "biopsy descending colon" is a vences, irregular portion of soft tissue measuring 0.3 cm. in greatest dimension. The specimen is submitted in toto in one cassette. H. Received in formalin, labeled "biopsy sigmoid colon" are 2 vences, irregular portions of soft tissue measuring 0.3 and 0.4 cm. in greatest dimension. The specimens are submitted in toto in one cassette. I. Received in formalin, labeled "biopsy rectum" is a vences, irregular portion of soft tissue measuring 0.4 cm. in greatest dimension. The specimen is submitted in toto in one cassette. 05/04/2018 [facility]05/04/2018
== END 2018-05-04 13:35 | disposition home or self-care (01) ==
LOC: JASU-ENDO 09:52
PROVIDERS: ATTEND Internal Medicine Gastroenterology
PROC: 0DBL8ZX Excision of Transverse Colon, Via Natural or Artificial Opening Endoscopic, Diagnostic (ICD-10-PCS; 2018-05-04)
PROC: 0DBN8ZX Excision of Sigmoid Colon, Via Natural or Artificial Opening Endoscopic, Diagnostic (ICD-10-PCS; 2018-05-04)
PROC: 0DBP8ZX Excision of Rectum, Via Natural or Artificial Opening Endoscopic, Diagnostic (ICD-10-PCS; 2018-05-04)
PROC: 0DBM8ZX Excision of Descending Colon, Via Natural or Artificial Opening Endoscopic, Diagnostic (ICD-10-PCS; 2018-05-04)
PROC: 0DB98ZX Excision of Duodenum, Via Natural or Artificial Opening Endoscopic, Diagnostic (ICD-10-PCS; 2018-05-04)
PROC: 0DB68ZX Excision of Stomach, Via Natural or Artificial Opening Endoscopic, Diagnostic (ICD-10-PCS; 2018-05-04)
PROC: 0DB38ZX Excision of Lower Esophagus, Via Natural or Artificial Opening Endoscopic, Diagnostic (ICD-10-PCS; 2018-05-04)
PROC: 0DBK8ZX Excision of Ascending Colon, Via Natural or Artificial Opening Endoscopic, Diagnostic (ICD-10-PCS; principal; 2018-05-04 10:15)
DX: K52.89 Other specified noninfective gastroenteritis and colitis (principal); R19.4 Change in bowel habit; K29.80 Duodenitis without bleeding; K20.9 Esophagitis, unspecified; K29.50 Unspecified chronic gastritis without bleeding
CPT/HCPCS: 84703; 88305-TC; 88342-TC

== ENCOUNTER 2019-08-24 09:20 | Emergency (ER) | payer OTHER ==
--- NOTE | 2019-08-24 09:22 | PDOC ---
Attending Attestation - Resident Resident Name: CorralesWalter penaloza - ED Attending Attestation I have performed the following: I have examined & evaluated the patient, The case was reviewed & discussed with the resident, I agree w/resident's findings & plan, Exceptions are as noted - HPI HPI: 08/24/19 09:39 URI symptoms, cough, for several days. History of mild asthma. - Physicial Exam PE: 08/24/19 09:40 Alert and oriented well-developed well-nourished no acute distress. No tachypnea or dyspnea. Afebrile, normal vital signs. Nasal congestion, watery nasal discharge. Ears and throat clear Neck supple without bruit mass or nodes Chest with end expiratory wheezes bilaterally, mild. CV normal Abdomen benign - Medical Decision Making 08/24/19 09:41 Assessment: URI, bronchitis, probably viral, possibly with asthma exacerbation Plan: Nebulizers, symptomatic treatment, refill asthma medication, and close follow-up. 08/24/19 10:28 Lungs clear after nebulizer treatment. Wheezing is resolved. Patient feels much better. Nebulizer solution refilled. Cough medicine ordered. Symptomatic treatment for probable viral URI/bronchitis with asthma exacerbation. Fully ambulatory and in no distress respiratory or otherwise at discharge.
--- NOTE | 2019-08-24 09:32 | PDOC ---
History of Present Illness - General Chief Complaint: Respiratory Stated Complaint: COUGH 3 DAYS LEFT EAR PAIN CONGESTION Time Seen by Provider: 08/24/19 09:22 - History of Present Illness Initial Comments: 08/24/19 09:31 34 yo F PMH asthma, endometriosis, hx PNA, 0.5ppd smoker, p/w SOB. Reports feeling similar to previous asthma exacerbations. Has been having URI symptoms since Tuesday with cough, runny nose, sinus pressure, and b/l ear pain consistent with previous URIs. Has not been taking her asthma medication because she ran out and has not seen her PMD. Endorses chest tightness. Denies CP, fevers/chills, constipation/diarrhea, recent travel, sick contacts. Past History - Past Medical History Allergies/Adverse Reactions: Allergies Allergy/AdvReac Type Severity Reaction Status Date / Time ketorolac tromethamine Allergy Intermediate Itching Verified 03/21/18 09:54 [From Toradol] Home Medications: Ambulatory Orders Albuterol 0.083% Nebulizer Keila [Ventolin 0.083% Nebulizer Soln -] 1 neb NEB Q6H PRN #30 vial 08/24/19 Promethazine HCl/Codeine [Prometh-Codein 6.25-10 mg/5 ml] 5 - 10 ml PO TID PRN # 100 ml MDD 6 08/24/19 Promethazine/Dextromethorphan [Promethazine-Dm Syrup] 2 tsp PO TID PRN #120 ml 08/24/19 Anemia: No Asthma: Yes Cancer: No Cardiac Disorders: No CVA: No COPD: No CHF: No DVT: No Dementia: No Diabetes: No GI Disorders: No Disorders: No HTN: No Hypercholesterolemia: No Kidney Stones: Yes Liver Disease: No Psychiatric Problems: Yes (ANXIETY) Seizures: No Thyroid Disease: No - Surgical History Abdominal Surgery: Yes (EXP LAP) Appendectomy: No Cardiac Surgery: No Cholecystectomy: No Lung Surgery: No Neurologic Surgery: No Orthopedic Surgery: No - Reproductive History (#): 9 Para: 2 Cervical CA: No Dysfunctional Uterine Bleeding: No Ectopic : No Endometrial CA: No Endometriosis: Yes Therapeutic (s) & number: Yes (1) Tubal Ligation: No Spontaneous : 6 - Immunization History Immunization Up to Date: Yes - Psycho Social/Smoking Cessation Hx Smoking Status: Yes Smoking History: Current every day smoker Have you smoked in the past 12 months: Yes Number of Cigarettes Smoked Daily: 10 If you are a former smoker, when did you quit?: T 'Breaking Loose' booklet given: 06/21/16 Hx Alcohol Use: No Drug/Substance Use Hx: No Substance Use Type: None Hx Substance Use Treatment: No Review of Systems - Review of Systems Constitutional: No: Chills, Diaphoresis, Fever, Night Sweats HEENTM: Yes: Ear Pain, Nose Congestion. No: Recent change in vision, Double Vision, Nose Pain, Hearing Loss, Throat Pain, Difficulty Swallowing Respiratory: Yes: Cough, Shortness of Breath. No: Orthopnea Cardiac (ROS): Yes: Chest Tightness. No: Chest Pain, Irregular Heart Rate, Lightheadedness, Palpitations, Syncope ABD/GI: No: Constipated, Diarrhea, Nausea, Vomiting : No: Flank Pain Musculoskeletal: No: Back Pain, Muscle Pain Neurological: No: Headache, Numbness, Tingling, Weakness *Physical Exam - Physical Exam Comments: 08/24/19 09:38 Gen: well-developed, well-nourished, NAD Neuro: AAOX4, CN II-XII intact, FTN intact, EOMI, PERRLA, 5/5 strength, SILT HEENT: atraumatic, normocephalic Neck: trachea midline, supple CV: regular rate, regular rhythm, no murmurs, rubs, or gallops Pulm: expiraotry wheezing R>L Abd: soft, non-distended, non-tender MSK: full ROM, intact pulses Extr: no edema, no deformities Skin: warm, dry Medical Decision Making - Medical Decision Making 08/24/19 09:39 Symptoms consistent with URI worsening asthma exacerbation. - Duoneb X3 - reassess - if better, likely dc with inhaler 08/24/19 09:51 Reassessed, lungs clear. Patient feeling better. Discharge - Discharge Information Problems reviewed: Yes Clinical Impression/Diagnosis: Acute wheezy bronchitis Condition: Stable - Additional Discharge Information Prescriptions: Albuterol 0.083% Nebulizer Keila [Ventolin 0.083% Nebulizer Soln -] 1 neb NEB Q6H PRN #30 vial PRN Reason: Short Of Breath/Wheezing Promethazine HCl/Codeine [Prometh-Codein 6.25-10 mg/5 ml] 5 - 10 ml PO TID PRN # 100 ml MDD 6 PRN Reason: Cough Promethazine/Dextromethorphan [Promethazine-Dm Syrup] 2 tsp PO TID PRN #120 ml PRN Reason: Cough - Follow up/Referral - Patient Discharge Instructions Patient Printed Discharge Instructions: DI for Asthma -- Adult Additional Instructions: You were seen with shortness of breath. This was likely an asthma exacerbation, worsened by an upper respiratory infection. It is very important that you take your home albuterol. Take the cough syrup as needed. Follow up with your primary care doctor within one week. Return to the ED if you develop worsening symptoms. - Post Discharge Activity Work/Back to School Note: Back to Work
[2019-08-24 09:35] VITALS: BP 135/88; PULSE 81; TEMP 98.1; BMI 25.0
[2019-08-24] MEDS ORDERED: ALBUTEROL SO4 2.5/IPRATROPIUM 0.5 INH SOL 3 ML VIAL.NEB. NEB ONE ×2 (09:35→09:37)
== END 2019-08-24 10:52 | disposition home or self-care (01) ==
LOC: FER 09:20
PROC: 3E0F7GC Introduction of Other Therapeutic Substance into Respiratory Tract, Via Natural or Artificial Opening (ICD-10-PCS; principal; 2019-08-24)
DX: J20.9 Acute bronchitis, unspecified (principal); R06.2 Wheezing; J45.909 Unspecified asthma, uncomplicated; F17.210 Nicotine dependence, cigarettes, uncomplicated; Z88.8 Allergy status to other drugs, medicaments and biological substances
CPT/HCPCS: 94640; 99282-25

== ENCOUNTER 2019-10-01 08:53 | Emergency (ER) | payer OTHER ==
[2019-10-01 09:09] VITALS: BP 112/65; PULSE 73; TEMP 97.8; BMI 26.6
[2019-10-01] MEDS ORDERED: LIDOCAINE 5% TOPICAL PATCH TP ONE (10:17)
[2019-10-01] MEDS ORDERED: LIDOCAINE 5% TOPICAL PATCH ONE (10:23)
--- NOTE | 2019-10-01 10:50 | PDOC ---
History of Present Illness - General Chief Complaint: Injury Stated Complaint: LT. LEG PAIN Time Seen by Provider: 10/01/19 09:31 - History of Present Illness Initial Comments: 10/01/19 10:26 HPI: 34 y/o F with hx of asthma, endometriosis, and MTHF4 gene (prothombotic?) presenting with left hamstring pain following coitus. She states she felt/heard a pop in her left leg followed by pain. She states pin was 10/10 initially but took ibuprofen 600mg and felt improvement of pain to 8/10. She feels pain worse with motion and on ambulation. Pain radiates to popliteal fossa and buttock. Denies back pain, rash, erythema, deformity, weakness. Denies fever, chills, emesis, chest pain, SOB. She also reports UTI like symptoms since yesterday morning with burning on urination and suprapubic discomfort. PMHx: as noted above ROS: as noted SHx: 1ppd/day x20 years; occasional alcohol use; no rec drugs currently Allergies: NKDA ROS: GENERAL/CONSTITUTIONAL: No fever or chills. No weakness. HEAD, EYES, EARS, NOSE AND THROAT: No change in vision. No ear pain or discharge. No sore throat. CARDIOVASCULAR: No chest pain or shortness of breath RESPIRATORY: No cough, wheezing, or hemoptysis. GASTROINTESTINAL: No vomiting, diarrhea or constipation. GENITOURINARY: +dysuria; no frequency, or change in urination. MUSCULOSKELETAL: +leg pain SKIN: No rash NEUROLOGIC: No headache, vertigo, loss of consciousness, or change in strength/ sensation. ENDOCRINE: No increased thirst. No abnormal weight change HEMATOLOGIC/LYMPHATIC: No anemia, easy bleeding, or history of blood clots. ALLERGIC/IMMUNOLOGIC: No hives or skin allergy. PE: GENERAL: Awake, alert, and fully oriented, no acute distress HEAD: No signs of trauma, normocephalic, atraumatic EYES: EOMI, sclera anicteric, conjunctiva clear ENT: Auricles normal inspection, hearing grossly normal, nares patent, oropharynx clear without exudates. Moist mucosa NECK: Normal ROM, no lymphadenopathy LUNGS: No increased work of breathing, symmetrical chest rise HEART: Regular rate, peripheral pulses 2+ and equal bilaterally. ABDOMEN: Soft, nondistended, nontender. No guarding, no rebound. No masses. No CVAT MUSCULOSKELETAL: Normal inspection, FROM; left posteromedial leg with ttp over muscle; no laxity on varus or valgus motions; anterior/posterior drawer test negative; mild limp on left due to pain NEUROLOGICAL: Cranial nerves II through XII grossly intact. Normal speech, normal gait, no focal sensorimotor deficits SKIN: Warm, Dry, normal turgor, no rashes or lesions noted Past History - Past Medical History Allergies/Adverse Reactions: Allergies Allergy/AdvReac Type Severity Reaction Status Date / Time ketorolac tromethamine Allergy Intermediate Itching Verified 10/01/19 09:06 [From Toradol] Home Medications: Ambulatory Orders Albuterol 0.083% Nebulizer Keila [Ventolin 0.083% Nebulizer Soln -] 1 neb NEB Q6H PRN #30 vial 08/24/19 Promethazine HCl/Codeine [Prometh-Codein 6.25-10 mg/5 ml] 5 - 10 ml PO TID PRN # 100 ml MDD 6 08/24/19 Promethazine/Dextromethorphan [Promethazine-Dm Syrup] 2 tsp PO TID PRN #120 ml 08/24/19 Cephalexin Monohydrate [Keflex -] 500 mg PO BID #9 capsule 10/01/19 Ibuprofen 600 mg PO QID #24 tablet 10/01/19 Anemia: No Asthma: Yes Cancer: No Cardiac Disorders: No CVA: No COPD: No CHF: No DVT: No Dementia: No Diabetes: No GI Disorders: No Disorders: No HTN: No Hypercholesterolemia: No Kidney Stones: Yes Liver Disease: No Psychiatric Problems: Yes (ANXIETY) Seizures: No Thyroid Disease: No - Surgical History Abdominal Surgery: Yes (EXP LAP) Appendectomy: No Cardiac Surgery: No Cholecystectomy: No Lung Surgery: No Neurologic Surgery: No Orthopedic Surgery: No - Reproductive History (#): 9 Para: 2 Cervical CA: No Dysfunctional Uterine Bleeding: No Ectopic : No Endometrial CA: No Endometriosis: Yes Therapeutic (s) & number: Yes (1) Tubal Ligation: No Spontaneous : 6 - Immunization History Immunization Up to Date: Yes - Psycho Social/Smoking Cessation Hx Smoking Status: Yes Smoking History: Current every day smoker Have you smoked in the past 12 months: Yes Number of Cigarettes Smoked Daily: 10 If you are a former smoker, when did you quit?: T Information on smoking cessation initiated: No 'Breaking Loose' booklet given: 06/21/16 Hx Alcohol Use: No Drug/Substance Use Hx: Yes (MARIJUANA) Substance Use Type: None Hx Substance Use Treatment: No *Physical Exam - Vital Signs Last Vital Signs Temp Pulse Resp BP Pulse Ox 97.8 F 73 16 112/65 97 10/01/19 09:06 10/01/19 09:06 10/01/19 09:06 10/01/19 09:06 10/01/19 09:06 Medical Decision Making - Medical Decision Making 10/01/19 10:50 34 y/o F with hx of asthma, endometriosis, and MTHF4 gene (prothombotic?) presenting with left hamstring pain following coitus and also with reports of UTI like symptoms. VSS, AF. PE with left posteromedial thigh ttp with no masses or rashes -ua, upreg, ucx, lidoderm, tylenol 10/01/19 10:55 ua positive, will treat for uti and send script pain improved with med administration Discussed with patient results and management plan; recommending 600mg ibuprofen q6hrs x3days and PCP f/u all questions answered Discharge - Discharge Information Problems reviewed: Yes Clinical Impression/Diagnosis: Musculoskeletal pain, UTI (urinary tract infection) Condition: Improved Disposition: HOME - Additional Discharge Information Prescriptions: Cephalexin Monohydrate [Keflex -] 500 mg PO BID #9 capsule Ibuprofen 600 mg PO QID #24 tablet - Follow up/Referral - Patient Discharge Instructions Patient Printed Discharge Instructions: DI for Musculoskeletal Pain, DI for Urinary Tract Infection (UTI) Additional Instructions: Additional Instructions: Please return to the emergency department with any new or worsening symptoms or concerns. Please follow up with your primary care physician within 72 hours for pain re- evaluation Please take keflex 500mg antibiotic twice a day for 5 days; you were given your first dose in the ER. Please take 600mg ibuprofen every 6-8 hours x3 days for pain control. You may purchase 4% lidoderm patches for additional relief. You may also rest and ice for additional relief - Post Discharge Activity
[2019-10-01 10:54] LABS: HYALINE CASTS 5 /lpf (0-8); URINE APPEARANCE TURBID; URINE BACTERIA 320.2 /hpf (NEGATIVE); URINE BILIRUBIN NEGATIVE (NEGATIVE); URINE COLOR YELLOW; URINE GLUCOSE (UA) NEGATIVE (NEGATIVE); URINE KETONE NEGATIVE (NEGATIVE); URINE LEUK ESTERASE 2+ (NEGATIVE); URINE NITRITE NEGATIVE (NEGATIVE); URINE PROTEIN 1+ (NEGATIVE); URINE RBC 339 /hpf (0-4); URINE WBC 628 /hpf (0-5)
[2019-10-01] MEDS ORDERED: CEPHALEXIN MONOHYDRATE 500 MG CAPSULE (UD) PO ONE (10:59)
[2019-10-01] MEDS ORDERED: CEPHALEXIN MONOHYDRATE 500 MG CAPSULE (UD) ONE (11:04)
[2019-10-01] MEDS ORDERED: ACETAMINOPHEN 500 MG TABLET (FP) PO ONE (11:09)
[2019-10-01] MEDS ORDERED: ACETAMINOPHEN 325 MG TABLET (FP) ONE (11:21)
--- NOTE | 2019-10-01 11:31 | PDOC ---
Attending Attestation - Resident Resident Name: Krupa Hilton - ED Attending Attestation I have performed the following: I have examined & evaluated the patient, The case was reviewed & discussed with the resident, I agree w/resident's findings & plan - HPI HPI: 10/01/19 11:24 Healthy 34-year-old female presents with 2 complaints, has urinary urgency and dysuria for 2 days, and left hamstring pain since 2 nights ago. No fevers or chills or flank pain, no gross hematuria or retention. Patient notes she had intercourse the previous 3 nights before symptoms began. 2 nights ago, during intercourse, patient felt a strain in her left hamstring which has been persistent. She had increased activity yesterday and felt increased pain in her left hamstring, so she presents for evaluation today. Self treating with ibuprofen with adequate relief, denies any back pain or direct injury or motor or sensory deficit. - Physicial Exam PE: 10/01/19 11:26 Afebrile, vital signs normal ambulatory with some discomfort, otherwise well appearing no cvat, abd benign with some suprapubic discomfort to palpation but no guarding /rebound L hamstring ttp (?hematoma but no ecchymosis), FROM with 5/5 strength flex/ extend L knee/ankle. 2+ distal pulses. - Medical Decision Making 10/01/19 11:31 Healthy 34-year-old female presents with dysuria/urgency consistent with cystitis, also with left hamstring atraumatic strain sustained yesterday without red flags on history or physical exam, neurovascular intact. Urinalysis with elevated white and red blood cells, consistent with cystitis. Urine culture in lab, will treat with antibiotics. L hamstring strain - no indication for imaging, encourage nsaids, ice/heat as needed, activity as tolerated. understands return criteria
[2019-10-01] MEDS ORDERED: LIDOCAINE PATCH REMOVAL MC SCH (22:00)
== END 2019-10-01 11:31 | disposition home or self-care (01) ==
LOC: JERFT 08:53 → JER 08:53
DX: M79.18 Myalgia, other site (principal); N39.0 Urinary tract infection, site not specified; J45.909 Unspecified asthma, uncomplicated; N80.9 Endometriosis, unspecified; Z88.8 Allergy status to other drugs, medicaments and biological substances; F17.210 Nicotine dependence, cigarettes, uncomplicated; F41.9 Anxiety disorder, unspecified; N20.0 Calculus of kidney
CPT/HCPCS: 81003; 84703; 87086; 99282-25

== ENCOUNTER 2020-12-06 11:03 | Emergency (ER) | payer OTHER ==
[2020-12-06] MEDS ORDERED: ACETAMINOPHEN 325 MG TABLET (FP) PO ONE (11:08)
[2020-12-06] MEDS ORDERED: LIDOCAINE 5% TOPICAL PATCH TP ONE (11:17)
[2020-12-06 11:18] VITALS: BP 134/94; PULSE 97; TEMP 99.2; BMI 26.4
[2020-12-06] MEDS ORDERED: ACETAMINOPHEN 325 MG TABLET (FP) ONE (11:26)
[2020-12-06] MEDS ORDERED: LIDOCAINE 5% TOPICAL PATCH ONE (11:27)
[2020-12-06 11:47] LABS: HEMOGLOBIN 16.5 GM/dl (10.7-15.3)
[2020-12-06 11:49] LABS: EPITHELIAL CELLS MANY /hpf
[2020-12-06 11:52] LABS: HEMATOCRIT 48.5 % (32.4-45.2); LYMPH % 36.5 % (8-40); MCH 33.8 pg (25.7-33.7); MEAN CELL VOLUME 99.3 fl (80-96); MEAN PLT VOLUME 9.2 fl (7.5-11.1); MONO % 7.2 % (3.8-10.2); NEUT % 49.3 % (42.8-82.8); PLATELET COUNT 185 K/MM3 (134-434); RBC 4.88 M/mm3 (3.60-5.2); RDW 12.8 % (11.6-15.6); WHITE BLOOD COUNT 6.4 K/mm3 (4.0-10.8)
[2020-12-06 11:55] LABS: BILIRUBIN,TOTAL 0.8 mg/dl (0.2-1); CALCIUM 8.9 mg/dl (8.5-10); CREATININE 0.7 mg/dl (0.55-1.3); POTASSIUM 4.3 mmol/L (3.5-5.1); TOT PROT 6.8 g/dl (6.4-8.2)
[2020-12-06] MEDS ORDERED: IBUPROFEN 600 MG TABLET (FP) PO ONE (12:07)
[2020-12-06] MEDS ORDERED: IBUPROFEN 400 MG TABLET (FP) PO ONE (12:10)
[2020-12-06] MEDS ORDERED: LIDOCAINE PATCH REMOVAL MC SCH (22:00)
== END 2020-12-06 12:28 | disposition home or self-care (01) ==
LOC: FER 11:03
DX: M79.10 Myalgia, unspecified site (principal)
CPT/HCPCS: 36415; 74176-TC; 80053; 81003; 81015; 84703; 85025; 87086; 99285-25

== ENCOUNTER 2021-02-10 19:15 | Emergency (ER) | payer OTHER ==
[2021-02-10 19:22] VITALS: BP 168/75; PULSE 75; TEMP 98; BMI 26.9
[2021-02-10] MEDS ORDERED: SODIUM CHLORIDE 1,000 ML IV STA ×2 (19:40→21:17)
[2021-02-10] MEDS ORDERED: ONDANSETRON 4 MG/2 ML VIAL IVPUSH ONE ×2 (19:44→21:02)
[2021-02-10] MEDS ORDERED: KETOROLAC TROMETHAMINE 30 MG/1 ML VIAL IVPUSH ONE (19:51)
[2021-02-10] MEDS ORDERED: ONDANSETRON 4 MG/2 ML VIAL ONE ×2 (19:52→21:03)
[2021-02-10] MEDS ORDERED: KETOROLAC TROMETHAMINE 30 MG/1 ML VIAL ONE (19:56)
[2021-02-10 19:58] LABS: EPITHELIAL CELLS FEW /hpf
[2021-02-10 19:58] LABS: BASO % 3.7 % (0-2.0); HEMATOCRIT 50.5 % (32.4-45.2); HEMOGLOBIN 16.9 GM/dl (10.7-15.3); LYMPH % 9.2 % (8-40); MCH 33.2 pg (25.7-33.7); MCHC 33.4 g/dl (32.0-36.0); MEAN CELL VOLUME 99.2 fl (80-96); MEAN PLT VOLUME 9.4 fl (7.5-11.1); MONO % 1.5 % (3.8-10.2); NEUT % 85.6 % (42.8-82.8); PLATELET COUNT 205 K/MM3 (134-434); RBC 5.09 M/mm3 (3.60-5.2); RDW 12.8 % (11.6-15.6); WHITE BLOOD COUNT 11.7 K/mm3 (4.0-10.8)
[2021-02-10 20:13] LABS: ALBUMIN 4.6 g/dl (3.4-5.0); BILIRUBIN,TOTAL 0.7 mg/dl (0.2-1); CALCIUM 9.2 mg/dl (8.5-10); CREATININE 0.5 mg/dl (0.55-1.3); TOT PROT 8.1 g/dl (6.4-8.2)
[2021-02-10] MEDS ORDERED: morphine CARPU-JECT 4 MG/1 ML DISP.SYRIN IVPUSH ONE (21:00)
[2021-02-10] MEDS ORDERED: morphine SULFATE 4 MG/ML VIAL ONE (21:03)
== END 2021-02-10 22:21 | disposition home or self-care (01) ==
LOC: FER 19:15
PROC: 3E033GC Introduction of Other Therapeutic Substance into Peripheral Vein, Percutaneous Approach (ICD-10-PCS; principal; 2021-02-10)
PROC: 3E0333Z Introduction of Anti-inflammatory into Peripheral Vein, Percutaneous Approach (ICD-10-PCS; 2021-02-10)
PROC: 3E033NZ Introduction of Analgesics, Hypnotics, Sedatives into Peripheral Vein, Percutaneous Approach (ICD-10-PCS; 2021-02-10)
PROC: 3E033GC Introduction of Other Therapeutic Substance into Peripheral Vein, Percutaneous Approach (ICD-10-PCS; 2021-02-10)
PROC: 3E0337Z Introduction of Electrolytic and Water Balance Substance into Peripheral Vein, Percutaneous Approach (ICD-10-PCS; 2021-02-10)
PROC: 3E0337Z Introduction of Electrolytic and Water Balance Substance into Peripheral Vein, Percutaneous Approach (ICD-10-PCS; 2021-02-10)
DX: R10.2 Pelvic and perineal pain (principal)
CPT/HCPCS: 36415; 76830-TC; 80053; 81003; 81015; 84703; 85025; 99285-25

== ENCOUNTER 2021-05-13 08:44 | Day surgery (SDC) | payer OTHER ==
[2021-05-11 15:32] VITALS: BMI 28.0
[2021-05-13] MEDS ORDERED: MIDAZOLAM HCL 2 MG/2 ML SINGLE DOSE VIAL ONE (11:19)
[2021-05-13] MEDS ORDERED: PROPOFOL 20 ML ONE ×2 (11:20)
[2021-05-13] MEDS ORDERED: BUPIVACAINE HCL/EPINEPHRINE/PF 30 ML VIAL IJ ONE (11:27)
[2021-05-13] MEDS ORDERED: KETAMINE HCL 200 MG/20 ML VIAL ONE (11:36)
[2021-05-13] MEDS ORDERED: DEXAMETHASONE SOD PHOSPHATE 4 MG/1 ML VIAL ONE (11:49)
[2021-05-13] MEDS ORDERED: KETOROLAC TROMETHAMINE 30 MG/1 ML VIAL ONE (11:49)
[2021-05-13] MEDS ORDERED: ceFAZolin SODIUM 1 GM VIAL ONE (11:49)
[2021-05-13] MEDS ORDERED: ONDANSETRON 4 MG/2 ML VIAL ONE (11:49)
[2021-05-13] MEDS ORDERED: LIDOCAINE HCL/PF 2% SDV 5ML VIAL ONE (11:49)
[2021-05-13] MEDS ORDERED: oxyCODONE HCL 5 MG TABLET PO PRN ×2 (12:53)
[2021-05-13] MEDS ORDERED: ONDANSETRON 4 MG/2 ML VIAL IVPUSH PRN (12:53)
[2021-05-13] MEDS ORDERED: PROMETHAZINE HCL 25 MG/1 ML VIAL IVPUSH PRN (12:53)
[2021-05-13 13:53] VITALS: TEMP 97.8
[2021-05-13 14:20] VITALS: BP 110/68; PULSE 78
== END 2021-05-13 14:10 | disposition home or self-care (01) ==
LOC: FASU 08:44
PROVIDERS: ATTEND Orthopaedic Surgery
PROC: 0LCN0ZZ Extirpation of Matter from Right Lower Leg Tendon, Open Approach (ICD-10-PCS; 2021-05-13)
PROC: 0LBN0ZZ Excision of Right Lower Leg Tendon, Open Approach (ICD-10-PCS; principal; 2021-05-13 11:57)
DX: M65.072 Abscess of tendon sheath, left ankle and foot (principal); B99.8 Other infectious disease
CPT/HCPCS: 84703; 87070; 87205; 94760

== ENCOUNTER 2021-06-27 11:37 | Emergency (ER) | payer OTHER ==
[2021-06-27] MEDS ORDERED: TETRACAINE 0.5% OPHTH SOLN 2 ML BOTTLE ONE (11:44)
[2021-06-27] MEDS ORDERED: FLUORESCEIN NA 1 EA STRIP ONE (11:44)
[2021-06-27] MEDS ORDERED: TETRACAINE 0.5% HCL 0.6ML DROPPER.BOTTLE OS ONE (11:45)
[2021-06-27] MEDS ORDERED: FLUORESCEIN NA 1 EA STRIP OS ONE (11:45)
[2021-06-27 12:03] VITALS: BP 140/79; PULSE 80; TEMP 97.9; BMI 28.0
== END 2021-06-27 12:46 | disposition home or self-care (01) ==
LOC: FER 11:37
DX: H16.001 Unspecified corneal ulcer, right eye (principal)
CPT/HCPCS: 99283-25

== ENCOUNTER 2021-12-13 11:55 | Emergency (ER) | payer OTHER ==
[2021-12-13 12:02] VITALS: TEMP 98.3; BMI 26.4
[2021-12-13] MEDS ORDERED: ONDANSETRON 4 MG TABLET PO ONE (12:13)
[2021-12-13] MEDS ORDERED: IBUPROFEN 600 MG TABLET (FP) PO ONE (12:13)
[2021-12-13] MEDS ORDERED: HALOPERIDOL 5 MG TABLET PO ONE (12:21)
[2021-12-13] MEDS ORDERED: HALOPERIDOL LACTATE 5 MG/ML IM ONE (12:22)
[2021-12-13] MEDS ORDERED: HALOPERIDOL LACTATE 5 MG/ML ONE (12:24)
[2021-12-13 12:36] LABS: EPITHELIAL CELLS MANY /hpf
[2021-12-13 13:04] VITALS: BP 149/87; PULSE 90
[2021-12-13] MEDS ORDERED: IBUPROFEN 400 MG TABLET (FP) PO ONE ×2 (13:14)
[2021-12-13] MEDS ORDERED: SODIUM CHLORIDE 1,000 ML IV STA (13:31)
== END 2021-12-13 13:30 | disposition home or self-care (01) ==
LOC: FER 11:55
PROC: 3E023NZ Introduction of Analgesics, Hypnotics, Sedatives into Muscle, Percutaneous Approach (ICD-10-PCS; principal; 2021-12-13)
PROC: 3E0337Z Introduction of Electrolytic and Water Balance Substance into Peripheral Vein, Percutaneous Approach (ICD-10-PCS; 2021-12-13)
DX: R11.10 Vomiting, unspecified (principal)
CPT/HCPCS: 81003; 81015; 96361; 96372; 99284-25

== ENCOUNTER 2022-09-06 13:43 | Emergency (ER) | payer OTHER ==
[2022-09-06 14:38] VITALS: BP 104/70; PULSE 74; RESP 18; TEMP 98.1; BMI 24.8
[2022-09-06] MEDS ORDERED: PENICILLIN V POTASSIUM 500 MG TABLET PO ONE (15:11)
== END 2022-09-06 15:39 | disposition home or self-care (01) ==
LOC: JER 13:43 → JERFT 13:43
DX: K04.7 Periapical abscess without sinus (principal)
CPT/HCPCS: 99283-25

== ENCOUNTER 2023-09-12 10:00 | Emergency (ER) | payer OTHER ==
[2023-09-12] MEDS ORDERED: ACETAMINOPHEN 1000 MG/100 ML BAG IVPB ONE (10:29)
[2023-09-12] MEDS ORDERED: FAMOTIDINE 20 MG/50 ML IVPB 20 MG/50 ML MG IVPB ONE ×2 (10:29→11:23)
[2023-09-12] MEDS ORDERED: SODIUM CHLORIDE 0.9% 1000 ML INFUS.BAG IV ONE (10:29)
[2023-09-12] MEDS ORDERED: ONDANSETRON 4 MG/2 ML VIAL IVPUSH ONE (10:29)
[2023-09-12 10:41] LABS: HCG,QUALITATIVE URINE Negative
[2023-09-12] MEDS ORDERED: ACETAMINOPHEN INJECTION 100 ML IVPB ONE (10:45)
[2023-09-12 11:01] LABS: URINE TRICHOMONAS PRESENT
[2023-09-12] MEDS ORDERED: ONDANSETRON 4 MG/2 ML VIAL ONE (11:05)
[2023-09-12] MEDS ORDERED: metroNIDAZOLE 250 MG TABLET PO ONE (11:10)
[2023-09-12 11:12] LABS: HEMATOCRIT 48.8 % (32.4-45.2); HEMOGLOBIN 16.7 G/dL (10.7-15.3); MCH 34.5 pg (25.7-33.7); MCHC 34.1 g/dl (32.0-36.0); MEAN PLT VOLUME 8.9 fl (7.5-11.1); PLATELET COUNT 211.6 10^3/uL (134-434); RBC 4.83 10^6/uL (3.60-5.2); RDW 13.4 % (11.6-15.6); WHITE BLOOD COUNT 11.7 10^3/uL (4.0-10.8)
[2023-09-12 11:22] LABS: ALBUMIN 4.4 g/dl (3.4-5.0); BILIRUBIN,TOTAL 0.5 mg/dl (0.2-1); CREATININE 0.5 mg/dl (0.6-1.3); POTASSIUM 4.4 mmol/L (3.5-5.1); TOT PROT 6.7 g/dl (6.4-8.2)
[2023-09-12] MEDS ORDERED: metroNIDAZOLE 250 MG TABLET ONE (11:23)
[2023-09-12 11:40] LABS: PLATELET ESTIMATE ADEQUATE
[2023-09-12 11:41] VITALS: PULSE 83; RESP 18; BMI 24.8
[2023-09-12] MEDS ORDERED: KETOROLAC TROMETHAMINE 15 MG/ML VIAL IVPUSH ONE (11:49)
[2023-09-12] MEDS ORDERED: KETOROLAC TROMETHAMINE 15 MG/ML VIAL ONE (11:57)
[2023-09-12 12:56] VITALS: BP 120/78; TEMP 98.8
== END 2023-09-12 14:39 | disposition home or self-care (01) ==
LOC: FER 10:00
PROC: 3E033GC Introduction of Other Therapeutic Substance into Peripheral Vein, Percutaneous Approach (ICD-10-PCS; principal; 2023-09-12)
PROC: 3E033GC Introduction of Other Therapeutic Substance into Peripheral Vein, Percutaneous Approach (ICD-10-PCS; 2023-09-12)
PROC: 3E033GC Introduction of Other Therapeutic Substance into Peripheral Vein, Percutaneous Approach (ICD-10-PCS; 2023-09-12)
PROC: 3E033NZ Introduction of Analgesics, Hypnotics, Sedatives into Peripheral Vein, Percutaneous Approach (ICD-10-PCS; 2023-09-12)
PROC: 3E0333Z Introduction of Anti-inflammatory into Peripheral Vein, Percutaneous Approach (ICD-10-PCS; 2023-09-12)
DX: R10.2 Pelvic and perineal pain (principal); A59.9 Trichomoniasis, unspecified; R10.30 Lower abdominal pain, unspecified
CPT/HCPCS: 36415; 74177-TC; 76830-TC; 80053; 81003; 81015; 84703; 85027; 87086; 87186; 96365; 96375; 99285-25; Q9967

== ENCOUNTER 2024-07-27 14:12 | Emergency (ER) | payer OTHER ==
[2024-07-27 14:30] VITALS: BP 126/83; PULSE 79; RESP 20; TEMP 98.5; BMI 28.1
[2024-07-27] MEDS ORDERED: ACETAMINOPHEN WITH CODEINE 300MG/30MG TABLET ONE (14:56)
[2024-07-27] MEDS: ACETAMINOPHEN WITH CODEINE 300MG/30MG TABLET PO ONE (14:58)
== END 2024-07-27 15:58 | disposition home or self-care (01) ==
LOC: JERFT 14:12
DX: K05.6 Periodontal disease, unspecified (principal); K02.9 Dental caries, unspecified
CPT/HCPCS: 99283-25

== ENCOUNTER 2025-02-11 16:14 | Emergency (ER) | payer OTHER ==
[2025-02-11 16:49] VITALS: BP 126/86; PULSE 73; RESP 18; TEMP 98; BMI 28.4
[2025-02-11] MEDS ORDERED: KETOROLAC TROMETHAMINE 30 MG/1 ML VIAL ONE (17:23)
[2025-02-11] MEDS: KETOROLAC TROMETHAMINE 30 MG/1 ML VIAL IM ONE (17:31)
== END 2025-02-11 17:49 | disposition home or self-care (01) ==
LOC: JERFT 16:14
PROC: 3E0233Z Introduction of Anti-inflammatory into Muscle, Percutaneous Approach (ICD-10-PCS; principal; 2025-02-11)
DX: K08.89 Other specified disorders of teeth and supporting structures (principal)
CPT/HCPCS: 96372; 99284-25

== ENCOUNTER 2025-07-22 12:14 | Emergency (ER) | payer OTHER ==
[2025-07-22 12:24] VITALS: BP 109/83; PULSE 84; RESP 16; TEMP 98.6; BMI 27.4
[2025-07-22] MEDS ORDERED: AMOXICILLIN 250 MG CAPSULE ONE (13:25)
[2025-07-22] MEDS ORDERED: KETOROLAC TROMETHAMINE 30 MG/1 ML VIAL ONE (13:25)
[2025-07-22] MEDS ORDERED: ACETAMINOPHEN 500 MG TABLET (FP) ONE (13:25)
[2025-07-22] MEDS: KETOROLAC TROMETHAMINE 30 MG/1 ML VIAL IM ONE (13:29)
[2025-07-22] MEDS: ACETAMINOPHEN 500 MG TABLET (FP) PO ONE (13:29)
[2025-07-22] MEDS: AMOXICILLIN 500 MG CAPSULE (FP) PO ONE (13:29)
== END 2025-07-22 15:43 | disposition left against medical advice (07) ==
LOC: JERFT 12:14
PROC: 3E0233Z Introduction of Anti-inflammatory into Muscle, Percutaneous Approach (ICD-10-PCS; principal; 2025-07-22)
DX: R22.0 Localized swelling, mass and lump, head (principal); K08.89 Other specified disorders of teeth and supporting structures
CPT/HCPCS: 96372; 99284-25